=== PATIENT | female | born 1995 | race Two or more races ===

== ENCOUNTER 2018-10-28 13:08 | Emergency (ER) | payer BC, MEDICAID ==
[2018-10-28 15:33] VITALS: BP 110/66
--- NOTE | 2018-10-28 16:33 | ED ---
Influenza-Like Illness - HPI Summary HPI Summary: Patient is a 23-year-old female presenting to the ED with request for a Monospot test. She states she has been in close proximity with someone who is also being tested for mono and is concerned. She denies any symptoms. She denies any fatigue, headache, photophobia, body aches, joint pains. Denies history of mono. Denies any fevers, sweats, chills. She states she is feeling at her baseline. - History of Current Complaint Chief Complaint: EDGeneral Time Seen by Provider: 10/28/18 13:14 Hx Obtained From: Patient Severity: Mild - Risk Factors Influenza Risk Factors: Negative - Allergy/Home Medications Allergies/Adverse Reactions: Allergies Allergy/AdvReac Type Severity Reaction Status Date / Time No Known Allergies Allergy Verified 10/28/18 13:17 PMH/Surg Hx/FS Hx/Imm Hx Previously Healthy: Yes - Immunization History Hx Pertussis Vaccination: No Immunizations Up to Date: Yes Infectious Disease History: No Infectious Disease History: Denies: Traveled Outside the [place] in Last 30 Days - Social History Occupation: Unemployed Lives: Dormitory/Roommates Alcohol Use: Occasionally Hx Substance Use: No Substance Use Type: Reports: None Hx Tobacco Use: No Smoking Status (MU): Unknown if Ever Smoked Review of Systems Constitutional: Negative Negative: Fever, Chills, Fatigue, Skin Diaphoresis Negative: Palpitations, Chest Pain Negative: Shortness Of Breath, Cough Genitourinary: Negative Positive: no symptoms reported, see HPI Negative: Arthralgia, Myalgia Skin: Negative All Other Systems Reviewed And Are Negative: Yes Physical Exam Triage Information Reviewed: Yes Vital Signs On Initial Exam: Initial Vitals Temp Pulse Resp BP Pulse Ox 98.8 F 110 18 114/76 99 10/28/18 13:14 10/28/18 13:14 10/28/18 13:14 10/28/18 13:14 10/28/18 13:14 Vital Signs Reviewed: Yes Appearance: Positive: Well-Appearing, Well-Nourished Skin: Positive: Warm, Skin Color Reflects Adequate Perfusion Head/Face: Positive: Normal Head/Face Inspection Eyes: Positive: EOMI, MONALISA, Conjunctiva Clear Neck: Positive: Supple, No Lymphadenopathy Respiratory/Lung Sounds: Positive: Clear to Auscultation, Breath Sounds Present Cardiovascular: Positive: RRR, Pulses are Symmetrical in both Upper and Lower Extremities Musculoskeletal: Positive: Strength/ROM Intact Neurological: Positive: Speech Normal Psychiatric: Positive: Affect/Mood Appropriate Diagnostics - Vital Signs Vital Signs Temp Pulse Resp BP Pulse Ox 10/28/18 15:31 98 F 95 16 110/66 99 10/28/18 14:59 99.2 F 99 18 99/51 98 10/28/18 13:14 98.8 F 110 18 114/76 99 - Laboratory Lab Results: Lab Results 10/28/18 Range/Units 14:13 Monoscreen Negative (Negative) Lab Statement: Any lab studies that have been ordered have been reviewed, and results considered in the medical decision making process. Flu Symptom Course/Dx - Course Course Of Treatment: Patient is evaluated for possible mono. She states she was in close proximity to someone who had mono. She is exhibiting no symptoms. On physical examination, patient appears well, lungs CTA. RRR. Dx with request for mono test. - Diagnoses Provider Diagnoses: Patient requested test Discharge - Sign-Out/Discharge Documenting (check all that apply): Patient Departure Patient Received Moderate/Deep Sedation with Procedure: No - Discharge Plan Condition: Stable Disposition: HOME Referrals: No Primary Care Phys,NOPCP [Primary Care Provider] - Additional Instructions: Negative for MONO. - Billing Disposition and Condition Condition: STABLE Disposition: Home - Attestation Statements Provider Attestation: I was available for consult. This patient was seen by the [facility]. The patient was not presented to, seen by, or examined by me. -Nicolas
== END 2018-10-28 15:31 | disposition home or self-care (01) ==
LOC: ED 13:08
DX: Z04.89 Encounter for examination and observation for other specified reasons (principal)
CPT/HCPCS: 36415; 86308; 99282

== ENCOUNTER 2019-08-13 17:59 | Emergency (ER) | payer BC ==
--- OUTSIDE RECORDS SUMMARY | 2019-08-13 18:06 | XMS REPORT | Summary of Care ---
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 of reinforcement, support of family/friends and written materials. Advisedof health risks of smoking cessation and substance abuse and monetary loss. Disposition: Discharge to home with mom in stable condition. Communication/Instructions to the PCP: strongly encourage pt to continue with current medication regimen. Consider neuropsychological testing. Pending labs/ tests done in hospital and still need to be followed up after discharge: None Patient was seen and discussed with Dr Hill who is in agreement with the above plan. Signature: Shruti Metcalf Date: July 30, 2019 10:24 AMElectronically signed by Shaw Hill MD at 2019 2:12 PM EST Associated attestation - Shaw Hill MD - 07/30/2019 2:12 PM ESTShe was clear and coherent when she met with the team before discharge. She plans to live with her mother and will apply for disability as she thinks that competitive work market will be too stressful for her. She may pursue further education. She wants to get psychological testing to rule out ADD.documented in this encounter Discharge Instructions Delmy Crouch LCSW - 07/29/2019 3:07 PM Javier Luo CANCELING AND CUTTING CONTROL CLERK [facility] [address] [place] [address] Appointment on Friday08/02/2019 at 11:[address] Robel Ruiz [facility]ry [facility] - psychiatry [address] [place] [address] [phone] Appointment on 08/05/2019 at 1:00 pm documented in this encounter Progress Notes Christianne Polanco RN - 07/30/2019 5:23 PM ESTPatient was picked up by her mom at 1720. Patient reported she is looking forward to going home. Patient denies SI /HI/AVH. [place] - 07/30/2019 1:39 PM EST Social Work Screening Patient Name: Natalya Tam Date of : 1995 County [place] Residence: [place] Admitting Dx: suicide attempt Suicide attempt Admitting Provider: Larisa Quiles MD Referral Type: Inpatient Referral Source: 5W Admission Reason for Referral: Discharge Planning Date: July 30, 2019 Informant: Patient SW intern brand and the team met with pt to discuss discharge. Pt states she is feeling much better today and is feeling hopeful about the next few months. Pt states her plan when she goes home is to apply for SSD due to her mental illness effecting her ability to work and states she will continue taking her medications. Pt has appointments with her therapist Giovanna on 08/02/[address] Ruiz on 08/05/2019 at 1 pm. Pt will discharge home today to live with her mother in [place]. Sexual Assault: Denies Interventions Encouraged patient to inform psychiatrist or therapist about any concerns. Encouraged direct communication. Assessed for SW needs. Discharged pt. Signature: [place] Date: July 30, 2019 Associated attestation - Delmy Loya LCSW - 07/30/2019 3:42 PM YANY attest that this discharge note is complete and accurate.Annabel Henderson GN - 10/2019 11:19 AM ESTPatient discharged at approximately 1040. Discharge paperwork, including medications/prescriptions, safety plan, and outpatient appointment information have all been discussed with the patient. All belongings have been collected and patient verified all belongings have been accounted for. If patient had any medications in the pharmacy or belongings in the safe, they have been returned. No concerns voiced by patient at this time and states readiness for discharge. Patient is waiting for her mother to pick her up at 1700. Ludwin Vigil RN - 07/30/2019 4:01 AM ESTPt asleep through out the night. Respirations easy,even,unlabored. Position changes noted. No apparent distress.No PRN's given this shift.\\ No new concerns. Will continue to monitor for comfort and safety. Shaw Jeffrey MD - 07/29/2019 1:43 PM EST PSY Progress Note Subjective: CC: "I'm feeling a lot better today" Interval HX: Natalya was seen for inpatient follow-up and family meeting with her mother, Marry Tam. SW, PA, PAstudent and HOTEL OPERATION MANAGER student were also present. Per nursing staff, she has been visible and social and med/meal compliant, looking forward to discharge. Today she appears very happy to see her mother and is pleasant and cooperative throughout the encounter. She is much more direct with her answers and does not exhibit her previous tangentiality or circumstantiality. Denies SI/HI/AVH. We start by obtaining collateral information from her mother, who corroborates her story of the incident in 2017; however, she does not mention any incident that barred Natalya from campus as pt has reported in previous sessions. States that afterwards, Natalya never really seemed the same and existed in a sedated state or anxious state, would intermittently say "I'm going crazy" and want to go to the hospital, but would calm down and feel better later without going. She also reports that pt was taking Seroquel and very high doses of medical marijuana to help her function, which contradicts pt' s prior statements that she used very little marijuana every so often. During the 2 week period between quitting her job and suicide attempt, mom says that Natalya was not sleeping, cooking at 3 am, and stumbling around the house. She didnotice a behavioral change when pt stopped Seroquel and started taking her stockpiled Klonopin (d/c'd by Dr. Ruiz because it didn't help). States that Natalya looks the best she has today than in the past 2.5 yrs. Mom also reports a FH of bipolar disorder in pt's maternal grandfather. Pt's biological father's FH is unknown. Upon further questioning, Mom reveals that in addition to pt's periods of decreased sleep and agitation, she also had a period where she did not get out of her mother's bed for about 1 month. We discussed her current medications, which pt is tolerating well. Klonopin has been discontinued with no adverse effects. She attributes her improvement to the gabapentin because it helps with her pain, but we assured pt that the risperidone was more likely to be the zepeda, as her prominent psychosis has continued to resolve. Counseled pt on avoidance of psychotropic substances, including marijuana, stimulants, benzodiazepines, and alcohol, which can precipitate episodes of psychosis. Patient is agreeable to this and says she is OK stopping her Klonopin; however she does express some concern about her ADHD diagnosis. She did well in high school, but was diagnosed by her PCP 1 year ago with ADHD. Has never undergone formal testing, and states she needed accommodations for school. States the reason she left [facility] is because she was not getting accommodations for her ADHD, which contradicts her story in previous visits that she was banned from campus after the 2017 incident. We informed her that the most helpful course of action for receiving accommodations from school would be a formal diagnosis from a neuropsychiatrist and recommended neuropsychological testing. Mom also states that Adderall precipitated periods of agitation for Natalya. We also recommended mood charting and emphasized longitudinalfollow-up with her therapist and psychiatrist. She is looking forward to discharge and plans to livewith her mom and take some time readjusting, possibly do something with art. She would like to see her old therapist, Giovanna Luo, and continue seeing Dr. Ruiz (she has an appointment on 08/04). She is looking forward to discharge and feels ready to go home in 1 or 2 days. . Patient Active Problem List Diagnosis Overdose of antipsychotic Suicide attempt Allergies: .No Known Allergies . Current Facility-Administered Medications: acetaminophen (TYLENOL) tablet 650 mg, 650 mg, Oral, Q4H PRN, LORENA Sanders, 650 mg at 07/27/19 1857 Benzocaine-Menthol (CEPACOL) 15-3.6 MG lozenge 1 lozenge, 1 lozenge, Mouth/Throat, Q2H PRN, LORENA Sanders, 1 lozenge at 07/26/19 1239 gabapentin (NEURONTIN) capsule 200 mg, 200 mg, Oral, TID, LORENA Simmons guaifenesin (MUCINEX) 12 hr tablet 600 mg, 600 mg, Oral, BID, LORENA Paul, 600 mg at07/29/19 0825 hydrOXYzine (ATARAX) tablet 50 mg, 50 mg, Oral, Q6H PRN, LORENA Sanders, 50 mg at 07/28/19 1601 linezolid (ZYVOX) tablet 600 mg, 600 mg, Oral, 2 times per day, LORENA Barron, 600 mg at07/29/19 0825 mirtazapine (REMERON) tablet 15 mg, 15 mg, Oral, Nightly, Larisa Quiles MD, 15 mg at 07/28/19 2118 multivitamin tablet 1 tablet, 1 tablet, Oral, Daily, LORENA Sanders, 1 tablet at 07/29/19 0826 nicotine (NICODERM CQ) 14 MG/24HR 1 patch, 1 patch, Transdermal, Daily, LORENA Simmons, 1 patch at 07/29/19 0827 ondansetron (ZOFRAN-ODT) disintegrating tablet 4 mg, 4 mg, Oral, Q6H PRN , LORENA Sanders pantoprazole (PROTONIX) EC tablet 40 mg, 40 mg, Oral, Daily, LORENA Sanders, 40 mgat 07/29/19 0826 risperidone (RISPERDAL) tablet 2 mg, 2 mg, Oral, BID, LORENA Simmons, 2 mg at 07/29/19 0826 Review Of Systems: Medical Review Of Systems: .Review of Systems Constitutional: Negative for malaise/fatigue and weight loss. Respiratory: Negative for shortness of breath. Cardiovascular: Negative for chest pain. Gastrointestinal: Negative for abdominal pain. Psychiatric/Behavioral: Positive for depression, substance abuse and suicidal ideas. Negative for hallucinations. The patient is nervous/anxious. All other systems reviewed are negative Psychiatric Review Of Systems: sleep: yes, improved appetite changes: yes, improved weight changes: no energy/anergy: yes, improved interest/pleasure/anhedonia: yes, improved somatic symptoms: yes, improved libido: no anxiety/panic: yes, somewhat improved (pt states she is back to her baseline level of anxiety, whichis tolerable to her) guilty/hopeless: no S.I.B.s/risky behavior: no any drugs: no alcohol: no Objective: . Vitals: 07/28/19 0600 07/28/19 0821 07/28/19 1600 07/29/19 0824 BP: (!) 78/46 100/62 112/75 103/66 Pulse: (!) 59 64 72 79 Resp: 16 16 16 16 Temp: 36.4 C 36.6 C 37 C 36.9 C SpO2: 98% 98% 99% 99% Mental Status Exam: .General Appearance: Patient is a short, thin 24 y.o. female who appears the stated age. She has short, black hair. She has good hygiene. She is sitting in a chair.She is dressed in weather appropriate and casual clothing. Behavior: Attitude: Patient is cooperative. Psychomotor: Patient has normal gait Patient does not have psychomotor agitation or psychomotor retardation. Patient does not exhibit restlessness. Eye Contact: Eye contact is appropriate. Patient maintains good eye contact. Speech: Patient's speech is fluent and spontaneous. Speech quantity: normal. Rate is normal. Volume is normal. Tone is normal. Mood: Patient's mood is happy Affect: Affect is euthymic, stable and congruent with stated mood. Patient appears to have full range. Thought Process: Thought process is linear, coherent and goal directed. Patient does not have racingthoughts. Thought Content: Patient expresses somatic delusions. Patient does not express active suicidal ideation, passive suicidal ideation, active homicidal ideation and passive homicidal ideation. Perceptions: Patient is not internally preoccupied. Patient does not have auditory hallucinations orvisual hallucinations. Cognition: Patient is awake and alert and attentive. She appears to have average intelligence. Insight: Fair Judgement: Fair Gait: Normal Muscle Tone: no rigidity Labs: . Recent Labs Lab 07/24/19 0854 07/25/19 0842 07/26/19 1001 NA 138 137 136 K 4.1 3.5 4.0 CL 102 102 102 BICARBONATE 23 20* 18* CALCIUM 9.2 9.1 9.6 GLUCOSE 86 84 139 BUN 6 4* 2* CREATININE 0.55 0.57 0.65 BCR 12 7 4 GFRAA >90 >90 >90 GFRNONAA >90 >90 >90 . Recent Labs Lab 07/23/19 0621 HCT 37.0 HGB 12.2 MCH 30.0 MCHC 32.9 MCV 91.1 PLT 272 RDW 14.1 WBC 12.3* . Recent Labs Lab 07/25/19 0842 TSH 2.190 EK07/23/2019 9:23 AM - Interface, Received Via [employer]al Systems Narrative & Impression Ventricular Rate: 114 BPM Atrial Rate: 114 BPM P-R Interval: 140 ms QRS Duration: 84 ms Q-T Interval: 318 ms QTC Calculation(Bazett): 438 ms P [place]: 48 degrees R [place]: 60 degrees T [place]: -4 degrees : SINUS TACHYCARDIA : NONSPECIFIC T WAVE ABNORMALITY : QTC WITHIN NORMAL LIMITS : ABNORMAL ECG : WHEN COMPARED WITH ECG OF 22-JUL-2019 14:28, : NON SPECIFIC T WAVE ABNORMALITY IN INFERIOR LEADS : Confirmed by MD LOJA DANIEL ([id number]) on 07/23/2019 9:23:32 : AM Assessment and Plan: Patient's psychotic symptoms appear to have markedly improved. However, due to her FH of bipolar disorder and mom's report of apparent manic and depressive episodes, it is important to consider a diagnosis of bipolar I disorder. Given the patient's heavy polysubstance use, it is unclear if this psychotic episode was substance-induced or if it was a mixed manic and depressive bipolar episode (possiblytriggered by substance use). She appears to be stable and ready for discharge in the near future, but we established the importance of medication adherence and close longitudinal follow-up with her current outpatient providers. Primary Diagnosis: DSM-5: Psychosis vs Substance Induced Psychotic disorder R/O Bipolar I -continue Risperdal to 2 mg BID -increase Gabapentin to 200 mg TID for anxiety -continue to monitor for safety and efficacy -encourage pt to participate in group activities -patient to see psychiatrist Dr. Ruiz for follow-up on 08/04 -anticipate discharge in 1-2 days Duration of Face to Face Time (in minutes)::45 FloorTime (in minutes): 40 [x] Greater than 50% of patient time and floor time spent providing counseling and/or coordination of care Counseling provided with: [x] Patient [x] Family [] Caregiver [x] Diagnostic results/impressions and/or recommendation studies [x] Risks and Benefits of Treatment Options [x] Instruction for Management/Treatment and/or Follow-Up [] Risk Factor Reduction [x] Importance of Compliance with Treatment Options [x] Patient/Family/Caregiver Education [] Prognosis Coordination of Care provided with: [x] Nursing Staff [x] Treatment Team [x]Social Work [x] Physician(s) [x] Family [] Caregiver Justification for Continued Stay: [x] A. Continued Danger to Self and/or Others [] B. Continued behavior intolerable to patient or society [] C. High probability of A or B recurring if patient were discharged and imminent re-hospitalization likely [] D. Recovery depends on use of modality, patient unwilling or unable to cooperate [] E. Major change of clinical conditions required extended treatment [] F. Patient has general medical condition requiring hospital care & due to psychiatric aspects, patient cannot be managed as well on non-psych unit [] ALC Alternate Level of Care Jennifer Engel RN - 07/29/2019 11:57 AM ESTReport received from previous shift. At the beginning of the shift pt was sleeping in room. Spend time with pt in 1:1 session and talked about the importance of using coping skills or learning the new one. According to pt, "slept good " and has a "good Mood." Pt was looking forward her family meeting. Pt was visible in the milieu, socialized with selected peers and encouraged to participate in unit'sgroups. Pt denies any safety concerns. Pt's L arm looks better, no swelling, redness or pain. Pt ate breakfast and took scheduled meds. Pt was given the menu, educated and encouraged to make a choice for the next day. Pt ambulates independently, does ADL's also independently and is free of falls at this time. Pt is on 30 min checks and will continue to monitor for safety. Delmy Slaughter LCSW - 07/29/2019 11:23 AM EST Social Work Screening Patient Name: Natalya Tam Date of : 1995 County [place] Residence: [place] Admitting Dx: suicide attempt Suicide attempt Admitting Provider: Larisa Quiles MD Referral Type: Inpatient Referral Source: 5W Admission Reason for Referral: Family Meeting Date: July 29, 2019 Informant: Patient The treatment team met with patient and her mother for a family meeting. Patient's symptoms were discussed including her response to stimulants and CBD oil. Patient was informed that she should stay on the antipsychotic as that is what has giving her the stability that she has achieved in the hospital. Patient's mother stated she is the best she has been in years. Patient agreed to stop using mj and cbd oil as it has been contraindicated with her psychotic depression. Patient hopes to return toschool and to work slowly as she continues to get better. Patient wants to return to her therapist Giovanna Luo and her psychiatrist Robel Ruiz, both located in [facility]. Patient will be discharged on Friday07/30/2019. Sexual Assault: Denies Interventions Held a family meeting. Signature: Delmy Loya Date: July 29, 2019 Heber Siddiqui RN - 07/29/2019 2:13 AM ESTRN Sheet Metal Operator Report: Patient has appeared to be sleeping for the majority of the shift. Patient's breathing appeared easy and unlabored. Position changes noted throughout the night. No safety concerns. Will continue to monitor. Heber Siddiqui RN - 07/29/2019 2:09 AM ESTRN Shift Report: Report received from previous RN at 1900. Patient intermittently visible in the milieu this shift. Patient states her mood is "much better," affect congruent with mood. Patient lookingforward to her family meeting with her mother tomorrow. She states that she is looking forward to hopefully being discharged soon. Patient was compliant with scheduled medications this shift. Will continue to monitor and provide for safety. Report to be given to oncoming RN. Delmy Slaughter LCSW - 07/28/2019 4:18 PM EST Social Work Screening Patient Name: Natalya Tam Date of : 1995 County [place]idence: [place] Admitting Dx: suicide attempt Suicide attempt Admitting Provider: Larisa Quiles MD Referral Type: Inpatient Referral Source: 5W Admission Reason for Referral: Family Meeting Date: July 28, 2019 Informant: Patient SW spoke with patient's mother to invite her to a family meeting. She can be here on 07/29/2019 at 11am. Sexual Assault: Denies Interventions Set up a family meeting Signature: Delmy Loya Date: July 28, 2019 Shruti Trujilol PA - 07/28/2019 1:59 PM EST PSY Progress Note Subjective: CC: Im doing better today Interval HX: Pt seen today in follow up care together with Dr Hill, PA student and HOTEL OPERATION MANAGER student. She is more clear and coherent today, acknowledges that she is "feeling better" she attributes this to gabapentin, which may be helping with her anxiety, but it is more likely the increase in her Risperdal which started last night. She is tolerating both medications with no negative effects. She continues to not be able to describe what was happening to her psychologically when she has these "PTSD episodes" she just repeats "pain" to any questions asked. When she resigned - she text her pattern marking supervisor saying she "required termination" because she was unable to perform her duties and would not be eligible forre-hire. I asked what her pattern marking supervisor responded with and pt replied she was unsure as she immediatelyblocked her number. She denies current SI. Agreed to rescind letter requesting court hearing. . Patient Active Problem List Diagnosis Overdose of antipsychotic Suicide attempt Allergies: .No Known Allergies . Current Facility-Administered Medications: acetaminophen (TYLENOL) tablet 650 mg, 650 mg, Oral, Q4H PRN, LORENA Sanders, 650 mg at 07/27/19 1857 Benzocaine-Menthol (CEPACOL) 15-3.6 MG lozenge 1 lozenge, 1 lozenge, Mouth/Throat, Q2H PRN, LORENA Sanders, 1 lozenge at 07/26/19 1239 clonazePAM (KLONOPIN) tablet 0.5 mg, 0.5 mg, Oral, BID, LORENA Simmons, 0.5 mg at 07/28/19 0825 gabapentin (NEURONTIN) capsule 100 mg, 100 mg, Oral, TID, LORENA Simmons, 100 mg at 07/28/19 0825 guaifenesin (MUCINEX) 12 hr tablet 600 mg, 600 mg, Oral, BID, LORENA Paul, 600 mg at07/28/19 0825 hydrOXYzine (ATARAX) tablet 50 mg, 50 mg, Oral, Q6H PRN, LORENA Sanders, 50 mg at 07/26/19 0104 linezolid (ZYVOX) tablet 600 mg, 600 mg, Oral, 2 times per day, LORENA Barron, 600 mg at07/28/19 0825 mirtazapine (REMERON) tablet 15 mg, 15 mg, Oral, Nightly, Larisa Quiles MD, 15 mg at 07/27/19 213 multivitamin tablet 1 tablet, 1 tablet, Oral, Daily, LORENA Sanders, 1 tablet at 07/28/19 08 nicotine (NICODERM CQ) 14 MG/24HR 1 patch, 1 patch, Transdermal, Daily, LORENA Simmons, 1 patch at 07/28/19 0828 ondansetron (ZOFRAN-ODT) disintegrating tablet 4 mg, 4 mg, Oral, Q6H PRN , LORENA Sanders pantoprazole (PROTONIX) EC tablet 40 mg, 40 mg, Oral, Daily, LORENA Sanders, 40 mgat 07/28/19 08 risperidone (RISPERDAL) tablet 2 mg, 2 mg, Oral, BID, LORENA Simmons, 2 mg at 07/28/19 0825 Review Of Systems: Medical Review Of Systems: .Review of Systems Constitutional: Negative for malaise/fatigue and weight loss. Respiratory: Negative for shortness of breath. Cardiovascular: Negative for chest pain. Gastrointestinal: Negative for abdominal pain. Psychiatric/Behavioral: Positive for depression, substance abuse and suicidal ideas. Negative for hallucinations. The patient is nervous/anxious. All other systems reviewed are negative Psychiatric Review Of Systems: sleep: yes appetite changes: yes weight changes: no energy/anergy: yes interest/pleasure/anhedonia: yes somatic symptoms: no libido: no anxiety/panic: yes guilty/hopeless: yes S.I.B.s/risky behavior: no any drugs: no alcohol: no Objective: . Vitals: 07/27/19 2100 07/27/19 2103 07/28/19 0600 07/28/19 0821 BP: 90/65 91/56 (!) 78/46 100/62 Pulse: (!) 59 64 Resp: 16 16 16 Temp: 37 C 36.4 C 36.6 C SpO2: 98% 98% 98% Mental Status Exam: .General Appearance: Patient is a thin 24 y.o. female who appears the stated age. She has braided hair. She has fair hygiene. She is sitting in a chair.She is dressed in weather appropriate and casualclothing. Behavior: Attitude: Patient is evasive. Psychomotor: Patient has normal gait Patient does not have psychomotor agitation or psychomotor retardation. Patient does not exhibit restlessness. Eye Contact: Patient maintains good eye contact. Speech: Patient's speech is spontaneous. Speech quantity: normal. Rate is normal. Volume is normal. Mood: Patient's mood is OK Affect: Affect is apathetic and labile. Patient appears to have full range. Thought Process: Thought process is coherent and circumstantial. Thought Content: Patient expresses somatic delusions. Patient does not express active suicidal ideation, passive suicidal ideation, active homicidal ideation and passive homicidal ideation. Perceptions: Patient is not internally preoccupied. Patient does not have auditory hallucinations orvisual hallucinations. Cognition: Patient is awake and alert and attentive. She appears to have average intelligence. Insight: Poor Judgement: Poor Gait:Normal Muscle Tone:Normal Labs: . Recent Labs Lab 07/22/19 0402 07/24/19 0854 07/25/19 0842 07/26/19 1001 NA 141 < > 138 137 136 K 3.3* < > 4.1 3.5 4.0 CL 114* < > 102 102 102 BICARBONATE 18* < > 23 20* 18* CALCIUM 6.6* < > 9.2 9.1 9.6 GLUCOSE 96 < > 86 84 139 BUN 3* < > 6 4* 2* CREATININE 0.52 < > 0.55 0.57 0.65 BCR 6 < > 12 7 4 PROT 5.5* -- -- -- -- ALBUMIN 3.4* -- -- -- -- TBILI 0.3 -- -- -- -- ALKPHOS 33* -- -- -- -- AST 9 -- -- -- -- ALT <5 -- -- -- -- GFRAA >90 < > >90 >90 >90 GFRNONAA >90 < > >90 >90 >90 < > = values in this interval not displayed. . Recent Labs Lab 07/22/19 0402 07/23/19 0621 HCT 35.3* 37.0 HGB 11.6 12.2 MCH 30.4 30.0 MCHC 32.8 32.9 MCV 92.5 91.1 PLT 118* 272 RDW 14.1 14.1 WBC 14.6* 12.3* . Recent Labs Lab 07/25/19 0842 TSH 2.190 Assessment and Plan: Primary Diagnosis: DSM-5: Psychosis vs Substance Induced Psychotic disorder -continue Risperdal to 2mg BID -continue Klonopin today at 0.5mg BID, tomorrow to 0.5mg qd and then D/C -discontinue clonidine, pt not meeting parameters to receive -continue Gabapentin 100mg TID -I have called mom and left a message requesting further collateral, no response - will call again -SW to arrange family meeting in next 48 hours for d/c planning -encourage pt to attend groups -collateral information from mom would be helpful Duration of Face to Face Time (in minutes)::45 FloorTime (in minutes): 30 [x] Greater than 50% of patient time and floor time spent providing counseling and/or coordination of care Counseling provided with: [x] Patient [] Family [] Caregiver [] Diagnostic results/impressions and/or recommendation studies [x] Risks and Benefits of Treatment Options [x] Instruction for Management/Treatment and/or Follow-Up [] Risk Factor Reduction [x] Importance of Compliance with Treatment Options [x]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 adjusted and to move out of the house she is currently at. She wants to reorient to the outside world and not have to worry about her medications. Patient has been oriented to the group schedule and will be encouraged to attend groups. Patient has been provided a journal and a stress ball. Shaw Jeffrey MD - 07/25/2019 1:54 PM EST PSY Progress Note Subjective: CC: Admitted after a serious overdose with Seroquel Interval HX: She has apparently experienced some unusual mood and behavioral symptoms over the past 2 years which she views as PTSD. She was treated at ICU for an overdose and was intubated. She has been focused on getting Klonopin and medical marijuana but is opposed to antipsychotics and mood stabilizers that are indicated. She has shown some improvement since yesterday. She is asking for a head scarf to use and is not focused on medications. She is on a small dose of Risperdal. . Patient Active Problem List Diagnosis Overdose of antipsychotic Suicide attempt Allergies: .No Known Allergies . Current Facility-Administered Medications: acetaminophen (TYLENOL) tablet 650 mg, 650 mg, Oral, Q4H PRN, LORENA Sanders, 650 mg at 07/24/192031 amoxicillin-clavulanate (AUGMENTIN) 875-125 MG per tablet 1 tablet, 1 tablet, Oral, 2 times per day, LORENA Sanders, 1 tablet at 07/25/19 0847 Benzocaine-Menthol (CEPACOL) 15-3.6 MG lozenge 1 lozenge, 1 lozenge, Mouth/Throat, Q2H PRN, LORENA Sanders, 1 lozenge at 07/25/19 1212 clonazePAM (KLONOPIN) tablet 1 mg, 1 mg, Oral, 4x Daily, LORENA Sanders, 1 mg at 07/25/19 1217 folic acid (FOLVITE) tablet 1 mg, 1 mg, Oral, Daily, LORENA Sanders, 1 mg at 07/25/19 0847 guaifenesin (MUCINEX) 12 hr tablet 600 mg, 600 mg, Oral, BID, LORENA Paul, 600 mg at07/25/19 0847 hydrOXYzine (ATARAX) tablet 50 mg, 50 mg, Oral, Q6H PRN, LORENA Sanders, 50 mg at 07/25/19 0116 linezolid (ZYVOX) tablet 600 mg, 600 mg, Oral, 2 times per day, LORENA Barron, 600 mg at07/25/19 1212 multivitamin tablet 1 tablet, 1 tablet, Oral, Daily, LORENA Sanders, 1 tablet at 07/25/19 0847 nicotine (NICOTROL) inhaler 1 puff, 1 puff, Inhalation, PRN, Giorgio Darden , HOTEL OPERATION MANAGER, 1 puff at 07/24/192031 ondansetron (ZOFRAN-ODT) disintegrating tablet 4 mg, 4 mg, Oral, Q6H PRN , LORENA Sanders pantoprazole (PROTONIX) EC tablet 40 mg, 40 mg, Oral, Daily, LORENA Sanders, 40 mgat 07/25/19 0847 risperidone (RISPERDAL) tablet 1 mg, 1 mg, Oral, BID, LORENA Sanders, 1 mg at 07/25/19 0847 thiamine (B-1) tablet 100 mg, 100 mg, Oral, Daily, LORENA Sanders, 100 mg at 07/25/19 0847 Review Of Systems: Medical Review Of Systems: .ROS All other systems reviewed are negative Psychiatric Review Of Systems: sleep: yes appetite changes: yes weight changes: no energy/anergy: yes interest/pleasure/anhedonia: yes somatic symptoms: no libido: no anxiety/panic: yes guilty/hopeless: no S.I.B.s/risky behavior: no any drugs: no alcohol: no Objective: . Vitals: 07/23/19 1700 07/24/19 0900 07/24/19 1700 03/01/20 1010 BP: 110/71 98/65 98/64 108/74 Pulse: 92 (!) 106 93 Resp: (!) 20 18 16 16 Temp: 36.8 C 36.6 C 37 C 36.5 C SpO2: 98% 98% 99% 96% Mental Status Exam: .Mental Status Exam Gait:Normal Muscle Tone:Normal Labs: . Recent Labs Lab 07/22/19 0402 07/23/19 0621 07/24/19 0854 07/25/19 0842 NA 141 < > 141 138 137 K 3.3* < > 3.5 4.1 3.5 CL 114* < > 110* 102 102 BICARBONATE 18* < > 18* 23 20* CALCIUM 6.6* < > 8.1* 9.2 9.1 GLUCOSE 96 < > 94 86 84 BUN 3* < > 2* 6 4* CREATININE 0.52 < > 0.47* 0.55 0.57 BCR 6 < > 5 12 7 PROT 5.5* -- -- -- -- ALBUMIN 3.4* -- -- -- -- TBILI 0.3 -- -- -- -- ALKPHOS 33* -- -- -- -- AST 9 -- -- -- -- ALT <5 -- -- -- -- GFRAA >90 < > >90 >90 >90 GFRNONAA >90 < > >90 >90 >90 < > = values in this interval not displayed. . Recent Labs Lab 07/22/1940107/23/19 0621 HCT 35.3* 37.0 HGB 11.6 12.2 MCH 30.4 30.0 MCHC 32.8 32.9 MCV 92.5 91.1 PLT 118* 272 RDW 14.1 14.1 WBC 14.6* 12.3* . Recent Labs Lab 07/25/19 0842 TSH 2.190 Assessment and Plan: Primary Diagnosis: DSM-5: PTSD Depression Duration of Face to Face Time (in minutes)::10 Floor Time (in minutes): 10 [x] Greater than 50% of patient time and floor time spent providing counseling and/or coordination of care Counseling provided with: [x] Patient [] Family [] Caregiver [] Diagnostic results/impressions and/or recommendation studies [x] Risks and Benefits of Treatment Options [x] Instruction for Management/Treatment and/or Follow-Up [] Risk Factor Reduction [x] Importance of Compliance with Treatment Options [x] Patient/Family/Caregiver Education [] Prognosis Coordination of Care provided with: [x] Nursing Staff [x] Treatment Team []Social Work [] Physician(s) [] Family [] Caregiver Justification for Continued Stay: [] A. Continued Danger to Self and/or Others [x] B. Continued behavior intolerable to patient or society [x] C. High probability of A or B recurring if patient were discharged and imminent re-hospitalization likely [] D. Recovery depends on use of modality, patient unwilling or unable to cooperate [] E. Major change of clinical conditions required extended treatment [] F. Patient has general medical condition requiring hospital care & due to psychiatric aspects, patient cannot be managed as well on non-psych unit [] ALC Alternate Level of Care Joann Johnson PA - 07/25/2019 11:45 AM EST Asked by RN to look at erythema on left arm. Patient is being treated for cellulitis. Has been on doxy x24 hours with worsening erythema; line drawn around erythema today. We can change antibiotic to linazolid for MRSA coverage and monitor. If continues to worsen in next 24 hours we can get ID input. BC negative so far. LORENA Barron 07/25/2019 11:50 Jennifer Engel RN - 07/25/2019 9:55 AM ESTReport received from previous shift. At the beginning of the shift pt was sleeping in room. BW was done according to the order. Pt is on CIWA. The swelling on her L a/c area is less, the redness is less, the pain is much less. Pt was sometimes visible in the milieu, socialized with selected peers and encouraged to participatein unit's groups. Pt denies any safety concerns at this time. Pt's thoughts process is linear. Pt ate breakfast and took scheduled meds. Pt was given the menu, educated and encouraged to make a choice for the next day. Pt ambulates independently, does ADL's also independently and is free of falls at this time. Pt is on 15 min checks and will continue to monitor for safety. Addendum: 1045-Pt came to the nursing station and showed her L arm. T/w assessed and erin the skin b/c the redness and swelling expanded since am time when it was assessed. Provider made aware and Hospitalist was paged at 1052. At 1056 t/w did talk to the hopspitalist and let him know about the situation. Waiting for further instructions. Raeann Griffin RN - 07/25/2019 5:26 AM ESTBelongings Given to pt: Striped long sleeve sweater Gómez bodysuit Black long sleeve sweater Gómez long sleeve thermal Short sleeve maroon shirt [place] green leggings Black yoga pants Multicolored pants 2 pairs socks 2 pairs underwear Locked in bin: Green bag Yancey headwrap Purple headwrap 5: 35 AM Heber Siddiqui RN - 07/25/2019 2:59 AM ESTRN Sheet Metal Operator Report: Patient has appeared to be sleeping for the majority of the shift. Patient's breathing appeared easy and unlabored. Position changes noted throughout the night. No safety concerns. Will continue to monitor. 0630--Patient refused her blood work this morning stating, "I don't want to do it right now, please."Electronically signed by Heber Aguillon RN at 2019 6:36 AM Haley Jean Baptiste RN - 07/24/2019 9:49 AM EST Heber Siddiqui RN - 07/24/2019 1:48 AM ESTRN Sheet Metal Operator Report: Patient awake at the start of the shift, requesting Tylenol for arm pain. Patient also requested throat lozenges for a sore throat from being intubated. At this time, patient also received her HS medications willingly. Patient states that she will be unable to sleep because she usually takes 2mg of Klonopin instead of the 1mg that she is receiving here. She requested paper and a pencil and has been sitting in the hallway, quietly writing. Patient's breathing appeared easy and unlabored. Position changes noted throughout the night. No safety concerns. Will continue to monitor. Heber Siddiqui RN - 07/24/2019 1:43 AM ESTRN Shift Report: Report received from previous RN at 1900. Patient visible at the start of the shift, requesting a nicotrol inhaler in place of the nicotine patch. Shortly after, patient went back to her room and spent the rest of the shift sleeping in bed. HS medications were held because patient wassleeping and she had already received medication upon arrival to the unit this evening. Will continue to monitor and provide for safety. Report to be given to oncoming RN. Susan Gutierrez RN - 07/23/2019 9:30 PM ESTColored oil crayons Susan Gutierrez RN - 07/23/2019 8:18 PM ESTPatient arrived v/a stretcher with security and [facility] police surgeon. Patient was very upset that she was transferred here to a closed unit. She thought she was voluntary and realized this was a closed unit. She wanted to go now and if she had to stay then she wanted her mother to stay with her. Very manic. PA was called to help assist her and get her take medication to help her calm down. Patient did take the po medications ordered with encouragement. She called Mom on phone and was yelling at her several times. Mom did come up for visiting time at 1830. She did not want to stay long because shewanted her daughter to calm down and rest. She stated she has not been sleeping well. The manic phase has been coming on and off for the past two years. It started when she went to college and became stressed and not sleeping well. Gradually tonight with the medications given she did start to calm down. She did change her own room. She was shown her room was 506 and she found an empty bed in 515 and started sleeping there. Susan Gutierrez RN - 07/23/2019 8:00 PM ESTSkin intact. Old scab area to left knee from a fall outside the hospital stays. Susan Gutierrez RN - 07/23/2019 7:58 PM ESTIf wound was present on admission, this documentation was sent to attending provider for cosignature. No annotated images are attached to the encounter. If wound was present on admission, this documentation was sent to attending provider for cosignature. No annotated images are attached to the encounter. If wound was present on admission, this documentation was sent to attending provider for cosignature. No annotated images are attached to the encounter. If wound was present on admission, this documentation was sent to attending provider for cosignature. No annotated images are attached to the encounter. Trey Rich NP - 07/23/2019 5:31 PM ESTInformed by Medicine Service prior to [facility] that patient had been trending a low phosphorus level which was replenished and reported to be normal earlier today. Medicine Service asked thatAugmentin 875 mg BID be continued for four days for LLL aspiration pneumonia. They also recommended that BMP, Phosphorus, and Magnesium levels be drawn and followed for the next five days. Protonix wasto be continued for ten days (ulcer prophylaxis, as patient was briefly intubated and in intensive care following a 6 gram Seroquel overdose). Folate, Thiamine, and multivitamin were recommended to be continued due to the possibility of excessive alcohol use prior to admission. Discussed above with Elva CARRILLO. Susan Gutierrez RN - 07/23/2019 4:32 PM ESTNot cooperative with admission. Nurse was able to wand her and get her weight. Refused admission andvitals . documented in this encounter Plan of Treatment Name Type Priority Associated Diagnoses Order Schedule Consult to Assisted PET Rehab Routine Continuous for 30 Days Therapy-Rehab/Psych for 30 Days starting 07/23/2019 until 07/23/2019 Health Maintenance Due Date Last Done Comments Pneumococcal Vaccine: Pediatrics 2003 (0 to 5 Years) and At-Risk Patients (6 to 64 Years) (1 of 1 - PPSV23) HPV Vaccines (1 - Female 2-dose 2008 series) HIV Screening 2010 Chlamydia Screening 2013 Cervical Cancer Screening 3 years 2018 Varicella Vaccines (1 of 2 - 01/19/2019 2-dose childhood series) Influenza Vaccine 02/23/2019 DTaP,Tdap,and Td Vaccines (2 - Td) 03/04/2019 02/04/2019 Pneumococcal Vaccine: 65+ Years (1 2062 of 2 - PCV13) MMR Vaccines Completed 12/22/2018 HIB Vaccines Aged Out No longer eligible based on patient's age to complete this topic Hepatitis A Vaccines Aged Out No longer eligible based on patient's age to complete this topic Hepatitis B Vaccines Aged Out No longer eligible based on patient's age to complete this topic IPV Vaccines Aged Out No longer eligible based on patient's age to complete this topic documented as of this encounter Procedures Procedure Name Priority Date/Time Associated Comments Diagnosis PHOSPHORUS LEVEL Routine 07/28/2019 9:20 Results for this AM EST procedure are in the results section. MAGNESIUM LEVEL Routine 07/28/2019 9:20 Results for this AM EST procedure are in the results section. PHOSPHORUS LEVEL Routine 07/27/2019 9:20 Results for this AM EST procedure are in the results section. MAGNESIUM LEVEL Routine 07/27/2019 9:20 Results for this AM EST procedure are in the results section. PHOSPHORUS LEVEL Routine 07/26/2019 10:01 Results for this AM EST procedure are in the results section. MAGNESIUM LEVEL Routine 07/26/2019 10:01 Results for this AM EST procedure are in the results section. BASIC METABOLIC PANEL Routine 07/26/2019 10:01 Results for this AM EST procedure are in the results section. TSH Routine 07/25/2019 8:42 Results for this AM EST procedure are in the results section. PHOSPHORUS LEVEL Routine 07/25/2019 8:42 Results for this AM EST procedure are in the results section. MAGNESIUM LEVEL Routine 07/25/2019 8:42 Results for this AM EST procedure are in the results section. HEMOGLOBIN A1C Routine 07/25/2019 8:42 Results for this AM EST procedure are in the results section. LIPID PANEL Routine 07/25/2019 8:42 Results for this AM EST procedure are in the results section. BASIC METABOLIC PANEL Routine 07/25/2019 8:42 Results for this AM EST procedure are in the results section. HCG, URINE Routine 07/24/2019 7:10 Results for this QUALITATIVE PM EST procedure are in the results section. PHOSPHORUS LEVEL Routine 07/24/2019 8:54 Results for this AM EST procedure are in the results section. MAGNESIUM LEVEL Routine 07/24/2019 8:54 Results for this AM EST procedure are in the results section. BASIC METABOLIC PANEL Routine 07/24/2019 8:54 Results for this AM EST procedure are in the results section. documented in this encounter Results Phosphorus Level (07/28/2019 9:20 AM EST) Phosphorus 3.2 2.5 - 4.5 mg/dL [facility] at Specimen Plasma Performing Organization Address [facility] Centercode Phone Number [facility] AT [address] [id number] [phone] [facility] at [address] [address] Magnesium Level (07/28/2019 9:20 AM EST) Magnesium 1.7 1.6 - 2.6 mg/dL [facility] at Specimen Plasma Performing Organization Address City/State/Zipcode Phone Number [facility] AT [address] [address] [facility] at [address] [address] Phosphorus Level (07/27/2019 9:20 AM EST) Phosphorus 2.6 2.5 - 4.5 mg/dL [facility] at Specimen Plasma Performing Organization Address City/[facility]/Zipcode Phone Number [facility] [address] [address] [facility] at [address] [address] Magnesium Level (07/27/2019 9:20 AM EST) Magnesium 1.8 1.6 - 2.6 mg/dL [facility] at Specimen Plasma Performing Organization Address City/[facility] Centercome Phone Number [facility] AT [address] [address] [facility] at [address] [address] Phosphorus Level (07/26/2019 10:01 AM EST) Phosphorus 2.4 (L) 2.5 - 4.5 mg/dL [facility] at Specimen Plasma Performing Organization Address [facility] Centercome Phone Number [facility] AT [address] [address] [facility] at [address] [address] Magnesium Level (07/26/2019 10:01 AM EST) Magnesium 1.7 1.6 - 2.6 mg/dL [facility] at Specimen Plasma Performing Organization Address [facility] Centercome Phone Number [facility] AT [address] [address] [facility] at [address] [address] Basic Metabolic Panel (07/26/2019 10:01 AM EST) Bicarbonate 18 (L) 22 - 29 mmol/L [facility] at Chloride 102 98 - 107 mmol/L [facility] at Creatinine 0.65 0.50 - 0.90 [facility] mg/dL [facility] at Glucose 139 70 - 140 mg/dL [facility] at Potassium 4.0 3.4 - 5.1 mmol/L [facility] at Sodium 136 136 - 145 mmol/L [facility] at Blood Urea Nitrogen 2 (L) 6 - 20 mg/dL [facility] at Anion Gap 16 (H) 8 - 15 mmol/L [facility] at Osmolality, Andrew 280 275 - 300 [facility] mosm/kg [facility] BUN/Cre Ratio 4 [facility] at Calcium 9.6 8.6 - 10.0 mg/dL [facility] at GFR Non >90 >60 [facility] [place] 2009 CDK-EPI mL/min/1.73m2 [facility] at GFR >90 >60 [facility] 2009 CKD-EPI mL/min/1.73m2 [facility] Specimen Plasma Performing Organization Address City/[facility]/Zipcode Phone Number [facility] AT [address] [address] [phone] [facility] at [address] [address] Lipid panel (07/25/2019 8:42 AM EST) Cholesterol 142 <200 mg/dL [facility] at Triglyceride 85 <150 mg/dL [facility] at HDL Cholesterol 52 >50 mg/dL [facility] at LDL Cholesterol 74 <100 mg/dL [facility] at VLDL Cholesterol 17 16 - 42 mg/dl [facility] at Non HDL Cholesterol 90 <130 mg/dL [facility] at Specimen Plasma Performing Organization Address City/[facility]ercome Phone Number [facility] AT [address] [address] [facility] at [address] [address] Hemoglobin A1c (07/25/2019 8:42 AM EST) Hemoglobin A1C 4.9 4.0 - 6.0 % [facility] at Estimated Avg Glucose 94 <126 mg/dL [facility] at Specimen Whole Blood Performing Organization Address City/[facility]/Zipcode Phone Number [facility] AT [address] [address] [facility] at [address] [address] TSH (07/25/2019 8:42 AM EST) TSH 2.190 0.270 - 4.200 u[IU]/mL [facility] at Specimen Plasma Performing Organization Address City/[facility]/Zipcode Phone Number [address] [address] [phone] [facility] at [address] [address] Phosphorus Level (07/25/2019 8:42 AM EST) Phosphorus 3.3 2.5 - 4.5 mg/dL [facility] at Specimen Plasma Performing Organization Address City/[facility]ercome Phone Number [facility] AT [address] [address] [facility] at [address] [address] Magnesium Level (07/25/2019 8:42 AM EST) Magnesium 1.9 1.6 - 2.6 mg/dL [facility] at CG Specimen Plasma Performing Organization Address City/[facility]ercome Phone Number [facility] AT [address] [address] [facility] at [address] [address] Basic Metabolic Panel (07/25/2019 8:42 AM EST) Bicarbonate 20 (L) 22 - 29 mmol/L [facility] at CG Chloride 102 98 - 107 mmol/L [facility] at Creatinine 0.57 0.50 - 0.90 [facility] mg/dL [facility] at Glucose 84 70 - 140 mg/dL [facility] at Potassium 3.5 3.4 - 5.1 mmol/L [facility] at Sodium 137 136 - 145 mmol/L [facility] at Blood Urea Nitrogen 4 (L) 6 - 20 mg/dL [facility] at Anion Gap 15 8 - 15 mmol/L [facility] at Osmolality, Andrew 280 275 - 300 [facility] mosm/kg [facility] at CG BUN/Cre Ratio 7 [facility] at Calcium 9.1 8.6 - 10.0 mg/dL [facility] at GFR Non >90 >60 [facility] [place] 2009 CDK-EPI mL/min/1.73m2 [facility] at CG GFR >90 >60 [facility] 2009 CKD-EPI mL/min/1.73m2 [facility] at CG Specimen Plasma Performing Organization Address City/[facility] Centercode Phone Number [facility] AT [address] [address] [facility] at [address] [address] HCG, Urine Qualitative (07/24/2019 7:10 PM EST) HCG, Urine Indeterminate (A) Negative [facility] Qualitative Comment: [facility] at Testing performed on dilute samples CG with specific gravity less than 1.010 may not reflect levels of HCG present in blood stream. Urine HCG should be evaluated on a first morning urine sample within 48 hours or perform a serum/plasma BHCG. Specific [place], 1.005 1.003 - 1.030 [facility] Urine [facility] at Specimen Urine Performing Organization Address City/[facility]/Zipcode Phone Number [facility] AT [address] [address] [facility] at [address] [address] Phosphorus Level (07/24/2019 8:54 AM EST) Phosphorus 3.5 2.5 - 4.5 mg/dL [facility] at Specimen Plasma Performing Organization Address City/[facility]/Zipcode Phone Number [facility] AT [address] [address] [facility] at [address] [address] Magnesium Level (07/24/2019 8:54 AM EST) Magnesium 2.0 1.6 - 2.6 mg/dL [facility] at Specimen Plasma Performing Organization Address City/[facility] Centercode Phone Number [facility] AT [address] [address] [facility] at [address] [address] Basic Metabolic Panel (07/24/2019 8:54 AM EST) Bicarbonate 23 22 - 29 mmol/L [facility] at Chloride 102 98 - 107 mmol/L [facility] at Creatinine 0.55 0.50 - 0.90 [facility] mg/dL [facility] at Glucose 86 70 - 140 mg/dL [facility] at Potassium 4.1 3.4 - 5.1 mmol/L [facility] at Sodium 138 136 - 145 mmol/L [facility] at Blood Urea Nitrogen 6 6 - 20 mg/dL [facility] at Anion Gap 13 8 - 15 mmol/L [facility] at Osmolality, Andrew 283 275 - 300 [facility] mosm/kg Univ at BUN/Cre Ratio 12 [facility] at Calcium 9.2 8.6 - 10.0 mg/dL [facility] at GFR Non >90 >60 [facility] [place] 2009 CDK-EPI mL/min/1.73m2 Univ at GFR >90 >60 [facility] 2009 CKD-EPI mL/min/1.73m2 Univ at Specimen Plasma Performing Organization Address City/State/[facility]ercome Phone Number [facility] AT [address] [address] [phone] [facility] at [address] [place] [address] documented in this encounter Visit Diagnoses Diagnosis Suicide attempt Suicide and self-inflicted injury by unspecified means documented in this encounter Administered Medications Medication Order MAR Action Action Date Dose Rate Site acetaminophen (TYLENOL) tablet Given 07/27/2019 6:57 PM EST 650 mg 650 mg 650 mg, Oral, Every 4 hours PRN, Mild Pain (Pain Scale Score 1-3), Pain, Starting Fri07/23/19 at 1714, For 30 days, MDD 4, Given 07/27/2019 2:26 PM EST 650 mg Given 07/27/2019 9:14 AM EST 650 mg Benzocaine-Menthol (CEPACOL) 15-3.6 MG Given 07/26/2019 12:39 PM EST 1 lozenge lozenge 1 lozenge 1 lozenge, Mouth/Throat, Every 2 hours PRN, Sore Throat, Starting Fri07/23/19 at 2334, For 30 days Given 07/26/2019 9:43 AM EST 1 lozenge Given 07/26/2019 5:04 AM EST 1 lozenge gabapentin (NEURONTIN) capsule 200 mg Given 07/30/2019 4:15 PM EST 200 mg 200 mg, Oral, Three Times Daily Standard, First dose (after last modification) on Jeanette 07/29/19 at 1700, For 84 doses Given 07/30/2019 8:24 AM EST 200 mg Given 07/29/2019 8:39 PM EST 200 mg guaifenesin (MUCINEX) 12 hr tablet 600 mg Given 07/30/2019 8:24 AM EST 600 mg 600 mg, Oral, 2 Times Daily, First dose on 07/24/19 at 1200, For 30 days, Do not crush or chew, Given 07/29/2019 8:39 PM EST 600 mg Given 07/29/2019 8:25 AM EST 600 mg hydrOXYzine (ATARAX) tablet 50 mg Given 07/29/2019 8:40 PM EST 50 mg 50 mg, Oral, Every 6 hours PRN, Anxiety, Sleep, Starting Fri07/23/19 at 1717, For 30 days Given 07/28/2019 4:01 PM EST 50 mg Given 07/26/2019 1:04 AM EST 50 mg linezolid (ZYVOX) tablet 600 mg Given 07/30/2019 8:24 AM EST 600 mg 600 mg, Oral, Every 12 hours Standard (2 times per day), First dose on Fri07/25/19 at 1200, For 7 days, Discouraged Uses: VRE colonization of the stool, urine, respiratory tract, wounds or drains, Given 07/29/2019 8:39 PM EST 600 mg Given 07/29/2019 8:25 AM EST 600 mg mirtazapine (REMERON) tablet 15 mg Given 07/29/2019 8:39 PM EST 15 mg 15 mg, Oral, Nightly, First dose on Fri07/26/19 at 2200, For 10 days Given 07/28/2019 9:18 PM EST 15 mg Given 07/27/2019 9:32 PM EST 15 mg multivitamin tablet 1 tablet Given 07/30/2019 8:24 AM EST 1 tablet 1 tablet, Oral, Daily Standard, First dose (after last modification) on 07/24/19 at 0800, For 29 doses Given 07/29/2019 8:26 AM EST 1 tablet Given 07/28/2019 8:25 AM EST 1 tablet nicotine (NICODERM CQ) 14 Patch Applied 07/30/2019 8:24 AM EST 1 patch Left Arm MG/24HR 1 patch 1 patch, Transdermal, Administer over 24 Hours, Daily Standard, First dose on Fri07/27/19 at 1015, For 30 days Patch Applied 07/29/2019 8:27 AM EST 1 patch Right Arm Patch Applied 07/28/2019 8:28 AM EST 1 patch Left Arm pantoprazole (PROTONIX) EC tablet 40 mg Given 07/30/2019 8:24 AM EST 40 mg 40 mg, Oral, Daily Standard, First dose on Fri07/24/19 at 0900, For 30 days, Do not crush or chew, Given 07/29/2019 8:26 AM EST 40 mg Given 07/28/2019 8:25 AM EST 40 mg risperidone (RISPERDAL) tablet 2 mg Given 07/30/2019 8:24 AM EST 2 mg 2 mg, Oral, 2 Times Daily, First dose (after last modification) on Fri07/27/19 at 2100, For 51 doses Given 07/29/2019 8:39 PM EST 2 mg Given 07/29/2019 8:26 AM EST 2 mg Medication Order MAR Action Action Date Dose Rate Site amoxicillin-clavulanate Given 07/27/2019 9:29 PM EST 1 tablet (AUGMENTIN) 875-125 MG per tablet 1 tablet 1 tablet, Oral, Every 12 hours Standard (2 times per day), First dose (after last modification) on Fri07/24/19 at 0900, For 8 doses Given 07/27/2019 8:26 AM EST 1 tablet Given 07/26/2019 9:20 PM EST 1 tablet cetirizine (ZYRTEC) tablet 10 mg Given 07/24/2019 9:02 AM EST 10 mg 10 mg, Oral, Daily Standard, First dose (after last reorder) on Fri07/24/19 at 0900, For 1 dose clonazePAM (KLONOPIN) tablet 0.5 mg Given 07/29/2019 8:26 AM EST 0.5 mg 0.5 mg, Oral, 2 Times Daily, First dose (after last modification) on Fri07/27/19 at 2100, For 2 days, Do not split or crush, Given 07/28/2019 9:17 PM EST 0.5 mg Given 07/28/2019 8:25 AM EST 0.5 mg clonazePAM (KLONOPIN) tablet 1 mg Given 07/26/2019 4:14 AM EST 1 mg 1 mg, Oral, Four Times Daily Standard, First dose on Fri07/23/19 at 1730, For 4 days, Do not split or crush, Given 07/25/2019 10:14 PM EST 1 mg Given 07/25/2019 5:10 PM EST 1 mg clonazePAM (KLONOPIN) tablet 1 mg Given 07/26/2019 9:20 PM EST 1 mg 1 mg, Oral, Three Times Daily Standard, First dose (after last modification) on Fri07/26/19 at 1400, For 2 days, Do not split or crush, Given 07/26/2019 2:03 PM EST 1 mg clonazePAM (KLONOPIN) tablet 1 mg Given 07/27/2019 9:14 AM EST 1 mg 1 mg, Oral, 2 Times Daily, First dose (after last modification) on Fri07/27/19 at 0900, For 2 doses, Do not split or crush, cloNIDine (CATAPRES) tablet 0.1 mg Given 07/27/2019 8:26 AM EST 0.1 mg 0.1 mg, Oral, 2 Times Daily, First dose on Fri07/26/19 at 1200, For 30 days, Check vital signs before administering, Given 07/26/2019 9:20 PM EST 0.1 mg Given 07/26/2019 12:37 PM EST 0.1 mg doxycycline (MONODOX) capsule 100 mg Given 07/25/2019 8:47 AM EST 100 mg 100 mg, Oral, Every 12 hours Standard (2 times per day), First dose (after last modification) on Fri07/24/19 at 1145, For 7 days, Give with food and administer with at least 8 ounces (240 mL) of water. Have patient sit up for at least 30 minutes after taking to reduce the risk of esophageal irritation and ulceration, as able., Given 07/24/2019 8:32 PM EST 100 mg Given 07/24/2019 12:14 PM EST 100 mg folic acid (FOLVITE) tablet 1 mg Given 07/27/2019 8:27 AM EST 1 mg 1 mg, Oral, Daily Standard, First dose on Fri07/24/19 at 0900, For 30 days Given 07/26/2019 9:28 AM EST 1 mg Given 07/25/2019 8:47 AM EST 1 mg gabapentin (NEURONTIN) capsule 100 mg Given 07/29/2019 8:25 AM EST 100 mg 100 mg, Oral, Three Times Daily Standard, First dose on Fri07/27/19 at 1700, For 30 days Given 07/28/2019 9:18 PM EST 100 mg Given 07/28/2019 4:01 PM EST 100 mg gabapentin (NEURONTIN) capsule 100 mg Given 07/29/2019 12:28 PM EST 100 mg 100 mg, Oral, Once, [facility] 07/29/19 at 1200, For 1 dose nicotine (NICOTROL) inhaler 1 puff Given 07/26/2019 11:47 AM EST 1 puff 1 puff, Inhalation, PRN, Smoking cessation, Starting Fri07/23/19 at 1916, For 30 days, May puff cartridge for up to 20 minutes. Each cartridge delivers 4 mg Avoid use between hours of 2200 and 0600 due to stimulant effects Do not exceed 16 cartridges/day, Given 07/25/2019 6:13 PM EST 1 puff Given 07/24/2019 8:32 PM EST 1 puff risperidone (RISPERDAL) tablet 1 mg Given 07/27/2019 9:00 AM EST 1 mg 1 mg, Oral, 2 Times Daily, First dose on Fri07/23/19 at 1715, For 30 days Given 07/26/2019 9:20 PM EST 1 mg Given 07/26/2019 9:28 AM EST 1 mg thiamine (B-1) tablet 100 mg Given 07/27/2019 8:27 AM EST 100 mg 100 mg, Oral, Daily Standard, First dose on Fri07/24/19 at 0900, For 30 days Given 07/26/2019 9:28 AM EST 100 mg Given 07/25/2019 8:47 AM EST 100 mg documented in this encounter
--- OUTSIDE RECORDS SUMMARY | 2019-08-13 18:07 | XMS REPORT | Summary of Care ---
:1995 Author Organization [facility] Address [address] [place] [address] Care Team Providers Name Role Phone Unavailable Primary Care Provider Unavailable Reason for Visit Auth/Cert Status Reason Specialty Diagnoses / Procedures Referred By Contact Referred To Contact Diagnoses Danyel YORK. Overdose of antipsychotic Encounter Details Date Type Department Care Team Description 07/22/2019 - Hospital Encounter 06H MEDICAL ICU [facility] [address] [place] [address] [phone] 07/23/2019 [address] [facility] Maia Ashley MD [address] [place] [address] [phone] [place], [place] Ann Marie Mello MD [facility] [address] [place] [address] [phone] [id number] Allergies No Known Allergiesdocumented as of this encounter (statuses as of 07/23/2019) Medications Medication Sig Dispensed Refills Start Date End Date Status Amoxicillin-Pot Take 1 tablet 8 tablet 0 07/24/2019 07/28/2019 Suspended Clavulanate 875-125 by mouth every MG Oral Tablet 12 (twelve) (AUGMENTIN) hours for 4 days Additional information Folic Acid 1 MG Oral Take 1 tablet by 30 tablet 0 07/24/2019 08/23/2019 Suspended Tablet (FOLVITE) mouth daily Additional information Docusate Sodium 100 Take 1 capsule by 20 capsule 0 07/23/2019 08/02/2019 Suspended MG Oral Capsule mouth Two Times (COLACE) Daily for 10 days Additional information Acetaminophen 325 MG Take 2 tablets by 30 tablet 0 07/23/2019 08/02/2019 Suspended Oral Tablet mouth every 6 (six) hours as needed for up to 10 days Additional information Bisacodyl [address] 1 12 suppository 0 07/23/2019 08/02/2019 Suspended Rectal Suppository suppository (DULCOLAX) rectally every 3 (three) days as needed for Constipation for up to 10 days Additional information Tab-A-Simone/Beta Carotene Take 1 tablet by 30 tablet 0 07/24/20192019 Suspended Oral Tablet mouth daily Additional information Nicotine 14 MG/24HR Place 1 patch onto the 28 patch 0 07/23/20192019 Suspended Transdermal Patch 24 skin every 24 Hour (NICODERM CQ) (twenty-four) hours Additional information Thiamine HCl 100 MG Take 1 tablet by 30 tablet 0 07/24/2019 07/22/2020 Suspended Oral Tablet (B-1) mouth daily Additional information Senna 176 MG/5ML Oral Take 10 mLs by mouth 237 mL 0 07/23/2019 08/22/2019 Suspended Syrup (SENOKOT) nightly as needed Additional information Pantoprazole Sodium 40 Take 1 tablet by 10 tablet 0 07/24/2019 08/03/2019 Suspended MG Oral Tablet Delayed mouth daily for Release (PROTONIX) 10 days Additional information Potassium Phosphate Take 1 tablet by 20 tablet 0 07/23/2019 07/28/2019 Suspended Monobasic 500 MG Oral mouth Four times Tablet (K-PHOS daily with meals ORIGINAL) and nightly for 5 days Additional information Calcium Acetate 667 Take 1 capsule by 15 capsule 0 07/23/2019 07/28/2019 Suspended MG Oral Capsule mouth Three times (PHOSLO) daily with meals for 5 days Additional information documented as of this encounter (statuses as of 07/23/2019) Active Problems Problem Noted Date Overdose of antipsychotic 07/22/2019 documented as of this encounter (statuses as of 07/23/2019) Social History Tobacco Use Types Packs/Day Years [...] Sign Reading Time Taken Comments Blood Pressure 108/61 07/23/2019 1:55 PM EST Pulse 85 07/23/2019 2:00 PM EST Temperature 38 07/23/2019 2:00 PM EST C (100.4 F) Respiratory Rate 20 07/23/2019 2:00 PM EST Oxygen Saturation 99% 07/23/2019 8:00 AM EST Inhaled Oxygen Concentration - - Weight 53.3 kg (117 lb 8.1 oz) 07/22/2019 5:00 AM EST Height 145 cm (4' 9.09") 07/22/2019 5:00 AM EST Body Mass Index 25.35 07/22/2019 5:00 AM EST documented in this encounter Progress Notes Elizabeth Salvador RN - 07/23/2019 2:26 PM ESTAt 0715 report received from previous RN. Patient has 1:1 sitter at bedside for safety. Patient is in bilateral wrist restraints due to patient being physically violent over night. Writing RN goes intobedside. Patient starts telling delusional story about being restrained for no reason. Writing RN attempts to tell patient she was restrained because she was hitting and kicking RN's. Patient does not want to listen but contracts not to hurt self or others and agrees to stay in the hospital. trolley worker of patient completed. Writing RN removes bilateral wrist restraints from patient. Patient startsremoving them off the bed and placing the restraints back on her wrists and ankles and refuses to take them off. Room is checked for removal of anything that can be used by patient to harm self or others. At 0900 AM writing RN removed mccormack catheter per patient request and MD order. Patient tolerated well. Patient used commode around 1000 AM. Patient offered to get washed up but patient refused. Patient changed into suicide gown. Patient seems to escalate situation and keeps yelling about leaving. Patient's mother at bedside. Medicine team called to bedside as well as psych. Psych sees patient andpsych still sees patient as a danger to self and wants to involuntarily admit patient to [address] [place] [address]. Report given Daniel at [address] [place] [address]. Social work is setting up transport for 1530. Lexi Bailey, [facility] - 07/23/2019 12:55 PM ESTSW received a consult to complete assessment for suicide attempt. SW met with pt and her mom. Role of SW discussed with pt and mom. Pt was very frustrated and when SW attempted to talk to pt, pt was was unable to focus and needed to be re-directed several times. Pt was focused on getting IV out as it was painful. SW was unable to complete assessment. SW did inform pt and room that there is a bed in [facility] and that pt will be transferred there today. Pt is agreeable. SW assisted with transfer to . Saeed Wall - 07/23/2019 8:41 AM EST Medical/Clinical Toxicology Consultation Date of Consultation: Location of Service: MICU Requesting Provider Name: Dr. Correa Reason for Consultation: The Toxicology Service was consulted to evaluate this patient for History of Present Illness: Patient is a 24 y.o F with a unknown PMH who presents as a transfer from [facility] intubated. Patient is suspected to have ingested 60x 100mg seroquel around 4 pm on 07/21. Patient was originally found in her car with the engine turned off (Chg 2%) Patient became more lethargic after the incident and was subsequently intubated. Patient received charcoal 17 hours after ingestion. Patients other medications are unknown as well as her PMH. It is thought that she takes klonopin as well. ECG at OSH was showed a QTc of 364. New one was being drawn this morning. Ethanol was negative as well as ASA + APOP. Patient was extubated last night. Today Patient is doing much better. She is agitated and difficult to get to answer questions appropriately but states that she only took her Seroquel in an attempt to take her own life. Patient stated to us that she is still suicidal. Patient is currently asymptomatic. Review of Systems: Patient refused except stated above. Past Medical History: History reviewed. No pertinent past medical history. Social History: Social History Tobacco Use Smoking status: Current Every Day Smoker Types: Cigarettes Smokeless tobacco: Current User Substance Use Topics Alcohol use: Yes Medications: Current Facility-Administered Medications Medication Dose Route Frequency Provider Last Rate Last Dose acetaminophen (TYLENOL) tablet 650 mg 650 mg Oral Q6H PRN Cecy Branch MD azithromycin (ZITHROMAX) 500 mg in sodium chloride 0.9 % 250 mL (2 mg/mL ) IVPB 500 mg Intravenous Q24H Cherri Santiago DO bisacodyl (DULCOLAX) suppository 10 mg 10 mg Rectal Q72H PRN Nelson Diaz MD calcium acetate (PHOSLO) capsule 667 mg 667 mg Oral 3 x Daily with Meals Nelson Diaz MD 667 mg at 07/22/19 1647 cefTRIAXone (ROCEPHIN) infusion 1 g (premix) 1 g Intravenous Q24H Cherri Santiago DO cetirizine (ZYRTEC) tablet 10 mg 10 mg Oral Daily ANY Celaya docusate sodium (COLACE) capsule 100 mg 100 mg Oral BID Nelson Diaz MD 100 mg at 202 enoxaparin sodium (LOVENOX) injection 40 mg 40 mg Subcutaneous Daily Cecy Branch MD folic acid (FOLVITE) tablet 1 mg 1 mg Oral Daily Cherri Santiago DO midazolam (PF) (VERSED) injection 2 mg 2 mg Intravenous Once ANY Celaya multivitamin tablet 1 tablet 1 tablet Oral Daily Cherri Santiago DO nicotine (NICODERM CQ) 14 MG/24HR 1 patch 1 patch Transdermal Q24H ANY Celaya 1 patch at 07/22/19 2334 pantoprazole (PROTONIX) injection 40 mg 40 mg Intravenous Daily Lg Breen III, MD 40 mg at 07/22/19 0803 potassium chloride (K-DUR,KLOR-CON) dissolvable tablet 40 mEq 40 mEq Oral Once Cherri Santiago DO senna (SENOKOT) syrup 10 mL 10 mL Oral Nightly PRN Nelson Diaz MD sodium chloride 0.9 % 1,000 mL with MVI adult 10 mL, folic acid 1 mg, magnesium sulfate 16 mEq, thiamine (B-1) 100 mg infusion 100 mL/hr Intravenous Continuous Cherri Santiago DO thiamine (B-1) tablet 100 mg 100 mg Oral Daily Cherri Santiago DO Allergies: No Known Allergies Family History History reviewed. No pertinent family history. Physical Examination: [id number] RICHARD EOMI No abdominal tenderness Pulses 2+ No muscle clonous Laboratory Results: Results for orders placed or performed during the hospital encounter of 07/22/19 Basic Metabolic Panel Result Value Ref Range Bicarbonate 18 (L) 22 - 29 mmol/L Chloride 114 (H) 98 - 107 mmol/L Creatinine 0.52 0.50 - 0.90 mg/dL Glucose 96 70 - 140 mg/dL Potassium 3.3 (L) 3.4 - 5.1 mmol/L Sodium 141 136 - 145 mmol/L Blood Urea Nitrogen 3 (L) 6 - 20 mg/dL Anion Gap 9 8 - 15 mmol/L Osmolality, Andrew 288 275 - 300 mosm/kg BUN/Cre Ratio 6 Calcium 6.6 (L) 8.6 - 10.0 mg/dL GFR Non 2008 CDK-EPI >90 >60 mL/min/1.73m2 GFR 2008 CKD-EPI >90 >60 mL/min/1.73m2 Magnesium Level Result Value Ref Range Magnesium 1.4 (L) 1.6 - 2.6 mg/dL Phosphorus Level Result Value Ref Range Phosphorus 1.7 (L) 2.5 - 4.5 mg/dL Blood gas, arterial Result Value Ref Range pH 7.37 (L) 7.38 - 7.44 pCO2, Arterial 32 (L) 35 - 40 mm[Hg] pO2, Arterial 149 (H) 95 - 100 mmHg Oxygen Saturation 99 94 - 100 % Base Excess NEG 6 Total CO2 19 mmol/L FIO2 0.40 Hepatic Function Panel Result Value Ref Range Albumin 3.4 (L) 3.5 - 5.2 g/dL Bilirubin, Total 0.3 <1.2 mg/dL Bilirubin, Direct <0.2 <0.3 mg/dL Alkaline Phosphatase 33 (L) 35 - 104 U/L AST/SGO 9 <32 U/L ALT/SGP <5 <33 U/L Total Protein 5.5 (L) 6.4 - 8.3 g/dL CBC and Differential Result Value Ref Range White Blood Cell 14.6 (H) 4 - 10 10*3/uL Red Blood Cell 3.82 (L) 4.1 - 5.3 10*6/uL Hemoglobin 11.6 11.5 - 15.5 g/dL Hematocrit 35.3 (L) 36 - 45 % Mean Cell Volume 92.5 80 - 96 fL Mean Cell Hemoglobin 30.4 27 - 33 pg Mean Cell Hgb Conc 32.8 32.0 - 36.0 g/dL Red Cell Dist Width 14.1 11.5 - 14.5 % Platelet Count 118 (L) 150 - 400 10*3/uL Differential Type Manual Diff Neutrophil 89 % Lymphocyte 8 % Monocyte 3 % Abs Neutrophil 13.08 (H) 1.8 - 7.0 10*3/uL Abs Lymphocyte 1.10 (L) 1.2 - 4.0 10*3/uL Abs Monocyte 0.41 0 - 0.8 10*3/uL Macrocytosis 1+ Poikilocytosis 1+ Protime-INR Result Value Ref Range PT Patient 15.1 (H) 12.5 - 14.9 s Int'l Normalized Ratio 1.15 Partial Thromboplastin Time (PTT) Result Value Ref Range PTT Patient (PAT) 21.3 (L) 24.0 - 34.0 s Acetaminophen, Random Result Value Ref Range Acetaminophen, Random <5.0 (L) 10.0 - 30.0 ug/mL Salicylate level Result Value Ref Range Salicylate <1.0 (L) 3.0 - 30.0 mg/dL Basic Metabolic Panel Result Value Ref Range Bicarbonate 18 (L) 22 - 29 mmol/L Chloride 113 (H) 98 - 107 mmol/L Creatinine 0.67 0.50 - 0.90 mg/dL Glucose 109 70 - 140 mg/dL Potassium 3.8 3.4 - 5.1 mmol/L Sodium 141 136 - 145 mmol/L Blood Urea Nitrogen 2 (L) 6 - 20 mg/dL Anion Gap 10 8 - 15 mmol/L Osmolality, Andrew 289 275 - 300 mosm/kg BUN/Cre Ratio 3 Calcium 7.9 (L) 8.6 - 10.0 mg/dL GFR Non 2008 CDK-EPI >90 >60 mL/min/1.73m2 GFR 2008 CKD-EPI >90 >60 mL/min/1.73m2 Magnesium Level Result Value Ref Range Magnesium 2.6 1.6 - 2.6 mg/dL Phosphorus Level Result Value Ref Range Phosphorus 0.6 (LL) 2.5 - 4.5 mg/dL Phosphorus Level Result Value Ref Range Phosphorus 1.1 (L) 2.5 - 4.5 mg/dL Magnesium Level Result Value Ref Range Magnesium 2.2 1.6 - 2.6 mg/dL Basic Metabolic Panel Result Value Ref Range Bicarbonate 20 (L) 22 - 29 mmol/L Chloride 112 (H) 98 - 107 mmol/L Creatinine 0.64 0.50 - 0.90 mg/dL Glucose 111 70 - 140 mg/dL Potassium 3.5 3.4 - 5.1 mmol/L Sodium 143 136 - 145 mmol/L Blood Urea Nitrogen 2 (L) 6 - 20 mg/dL Anion Gap 11 8 - 15 mmol/L Osmolality, Andrew 292 275 - 300 mosm/kg BUN/Cre Ratio 3 Calcium 8.1 (L) 8.6 - 10.0 mg/dL GFR Non 2008 CDK-EPI >90 >60 mL/min/1.73m2 GFR 2008 CKD-EPI >90 >60 mL/min/1.73m2 Phosphorus Level Result Value Ref Range Phosphorus 2.9 2.5 - 4.5 mg/dL Magnesium Level Result Value Ref Range Magnesium 2.0 1.6 - 2.6 mg/dL Basic Metabolic Panel Result Value Ref Range Bicarbonate 20 (L) 22 - 29 mmol/L Chloride 112 (H) 98 - 107 mmol/L Creatinine 0.50 0.50 - 0.90 mg/dL Glucose 91 70 - 140 mg/dL Potassium 3.8 3.4 - 5.1 mmol/L Sodium 144 136 - 145 mmol/L Blood Urea Nitrogen 2 (L) 6 - 20 mg/dL Anion Gap 12 8 - 15 mmol/L Osmolality, Andrew 294 275 - 300 mosm/kg BUN/Cre Ratio 4 Calcium 8.4 (L) 8.6 - 10.0 mg/dL GFR Non 2008 CDK-EPI >90 >60 mL/min/1.73m2 GFR 2008 CKD-EPI >90 >60 mL/min/1.73m2 CBC and Differential Result Value Ref Range White Blood Cell 12.3 (H) 4 - 10 10*3/uL Red Blood Cell 4.06 (L) 4.1 - 5.3 10*6/uL Hemoglobin 12.2 11.5 - 15.5 g/dL Hematocrit 37.0 36 - 45 % Mean Cell Volume 91.1 80 - 96 fL Mean Cell Hemoglobin 30.0 27 - 33 pg Mean Cell Hgb Conc 32.9 32.0 - 36.0 g/dL Red Cell Dist Width 14.1 11.5 - 14.5 % Platelet Count 272 150 - 400 10*3/uL Differential Type Automated Diff Neutrophil 76 % Lymphocyte 13 % Monocyte 4 % Eosinophil 6 % Basophil 1 % Abs Neutrophil 9.43 (H) 1.8 - 7.0 10*3/uL Abs Lymphocyte 1.59 1.2 - 4.0 10*3/uL Abs Monocyte 0.46 0 - 0.8 10*3/uL Abs Eosinophil 0.76 (H) 0 - 0.5 10*3/uL Abs Basophil 0.06 0 - 0.2 10*3/uL Nucleated Red Blood Cells 0 0 - 0 /100 Phosphorus Level Result Value Ref Range Phosphorus 2.6 2.5 - 4.5 mg/dL Magnesium Level Result Value Ref Range Magnesium 1.9 1.6 - 2.6 mg/dL Basic Metabolic Panel Result Value Ref Range Bicarbonate 18 (L) 22 - 29 mmol/L Chloride 110 (H) 98 - 107 mmol/L Creatinine 0.47 (L) 0.50 - 0.90 mg/dL Glucose 94 70 - 140 mg/dL Potassium 3.5 3.4 - 5.1 mmol/L Sodium 141 136 - 145 mmol/L Blood Urea Nitrogen 2 (L) 6 - 20 mg/dL Anion Gap 13 8 - 15 mmol/L Osmolality, Andrew 288 275 - 300 mosm/kg BUN/Cre Ratio 5 Calcium 8.1 (L) 8.6 - 10.0 mg/dL GFR Non 2008 CDK-EPI >90 >60 mL/min/1.73m2 GFR 2008 CKD-EPI >90 >60 mL/min/1.73m2 POCT glucose, docked Result Value Ref Range POC Glucose 103 70 - 140 mg/dL Assessment: Natalya Tam is a 24 y.o. old female with acute seroquel overdose. Patient is currently doing much better. She is no longer sedated and is answering questions appropriately. Patients vitalsare stable and labs have been repleted. She shows no signs of QT prolongation. Patient is voiding appropriately. Recommendations: Patient is clear from a toxicological stand point. We recommend follow up and advice per primary team and psych. We will follow this morning's EKG. Please call us if any further concerns or changes in mental status. Thank you for this consult and for allowing Toxicology service to participate in the care of this patient. If there are any questions regarding recommendations, or if the patient's condition changes, please feel free to call the Toxicology Service or the Poison Center at . Report Completed by: Saeed Gaspar The case and findings were discussed and reviewed with Dr. Rodas + Dr. Correa --- End of Report --- Associated attestation - Kanchan Goncalves PharmD - 07/23/2019 2:13 PM ESTDiscussed with the student and agree with the students findings and plans as written, along with anysupplemental dictated and/or attending documentation in the patient record by myself. Itzel Ho MBBS - 07/23/2019 12:48 AM ESTPatient evaluated at bedside. She looks restless, angry, agitated and extremely emotionally volatile on my encounter. Demands to be taken off restraints. She says she might have "swore too much" and might have "been 2 -3 times louder" than the way she is talking right now but wants to be taken "off these restraints like an animal" She constantly swears during my interview and complaints about everyone taking care of her. When author tries to explain her that these measure are for her safety, she says "don't interrupt me and justlisten to me" Orders placed, will continue to monitor. David Whitaker RN - 07/23/2019 12:33 AM [id number] - Pt increasingly agitated, disagreeable with staff attempting to undo restraints and exit bed.Pt is confused, has poor impulse control, and aggressive. HR in 150s paged, orders placed. Kanchan Hutchison PharmD - 07/22/2019 11:33 AM EST Medical/Clinical Toxicology Consultation Date of Consultation: 07/22/19 Location of Service: MICU Requesting Provider Name: Dr. Correa Reason for Consultation: The Toxicology Service was consulted to evaluate this patient for History of Present Illness: Patient is a 24 y.o F with a unknown PMH who presents as a transfer from [facility] intubated. Patient is suspected to have ingested 60x 100mg seroquel around 4 pm on 07/21. Patient was originally found in her car with the engine turned off (Chg 2%) Patient became more lethargic after the incident and was subsequently intubated. Patient received charcoal 17 hours after ingestion. Patients other medications are unknown as well as her PMH. It is thought that she takes klonopin as well. ECG at OSH was showed a QTc of 364. New one was being drawn this morning. Ethanol was negative as well as ASA + APOP. Patient this morning is doing better and off sedation. Patient is still very lethargic and unable to answer any questions. Review of Systems: As seen above. Past Medical History: History reviewed. No pertinent past medical history. Social History: Social History Tobacco Use Smoking status: Current Every Day Smoker Types: Cigarettes Smokeless tobacco: Current User Substance Use Topics Alcohol use: Yes Medications: Current Facility-Administered Medications Medication Dose Route Frequency Provider Last Rate Last Dose acetaminophen (TYLENOL) tablet 650 mg 650 mg Oral Q6H PRN Lg Breen III, MD bisacodyl (DULCOLAX) suppository 10 mg 10 mg Rectal Q72H PRN Nelson Diaz MD calcium acetate (PHOSLO) capsule 667 mg 667 mg Oral 3 x Daily with Meals Nelson Diaz MD calcium gluconate in NaCl 0.9 % infusion 2 g/50 mL 2 g Intravenous Q1H PRN Lg Breen III, MD docusate sodium (COLACE) capsule 100 mg 100 mg Oral BID Nelson Diaz MD magnesium sulfate infusion 2 g/50 mL (premix) 16 mEq Intravenous Q1H PRN Lg Breen III, MD 50 mL/hr at 07/22/19 1100 midazolam (PF) (VERSED) injection 2 mg 2 mg Intravenous Q4H PRN ANY Ramsey 2 mgat 07/22/19 0452 NaCl infusion 0.9 % Intravenous Continuous Lg Breen III, MD Stopped at 07/22/19 1016 pantoprazole (PROTONIX) injection 40 mg 40 mg Intravenous Daily Lg Breen III, MD 40 mg at 07/22/19 0803 potassium chloride 20 mEq in 50 mL IVPB (premix) 20 mEq Intravenous Q1H PRN Lg Breen III, MD 25 mL/hr at 07/22/19 1100 Or potassium chloride 10 mEq in 100 mL IVPB (premix) 10 mEq Intravenous Q1H PRN Lg Breen III, MD potassium phosphate (monobasic) (K-PHOS ORIGINAL) tablet 500 mg 500 mg Oral 4 x Daily with Meals & Nightly Nelson Diaz MD potassium phosphate infusion 12 mmol/100 mL (central line) (premix) 12 mmol Intravenous Q2H PRN Lg Breen III, MD Or potassium phosphate infusion 6 mmol/100 mL (premix) 6 mmol Intravenous Q2H PRN Lg Breen III, MD propofol (DIPRIVAN) infusion 1,000 mg/100 mL 10-80 mcg/kg/min Intravenous Continuous ANY Ramsey Stopped at 07/22/19 0854 senna (SENOKOT) syrup 10 mL 10 mL Oral Nightly PRN Nelson Diaz MD sodium phosphate infusion 12 mmol/100 mL (central line) (premix) 12 mmol Intravenous Q2H PRNDeddie Breen III, MD Or sodium phosphate infusion 6 mmol/100 mL (premix) 6 mmol Intravenous Q2H PRN Lg Breen III, MD Allergies: No Known Allergies Family History History reviewed. No pertinent family history. Physical Examination: Intubated and sedated + difficult to arouse Pupils 3+ equal and reactive with disconjugate outward gaze CTA Bl RRR Normoactive bowel sounds Pulses 2+ Laboratory Results: Results for orders placed or performed during the hospital encounter of 07/22/19 Basic Metabolic Panel Result Value Ref Range Bicarbonate 18 (L) 22 - 29 mmol/L Chloride 114 (H) 98 - 107 mmol/L Creatinine 0.52 0.50 - 0.90 mg/dL Glucose 96 70 - 140 mg/dL Potassium 3.3 (L) 3.4 - 5.1 mmol/L Sodium 141 136 - 145 mmol/L Blood Urea Nitrogen 3 (L) 6 - 20 mg/dL Anion Gap 9 8 - 15 mmol/L Osmolality, Andrew 288 275 - 300 mosm/kg BUN/Cre Ratio 6 Calcium 6.6 (L) 8.6 - 10.0 mg/dL GFR Non 2008 CDK-EPI >90 >60 mL/min/1.73m2 GFR 2008 CKD-EPI >90 >60 mL/min/1.73m2 Magnesium Level Result Value Ref Range Magnesium 1.4 (L) 1.6 - 2.6 mg/dL Phosphorus Level Result Value Ref Range Phosphorus 1.7 (L) 2.5 - 4.5 mg/dL Blood gas, arterial Result Value Ref Range pH 7.37 (L) 7.38 - 7.44 pCO2, Arterial 32 (L) 35 - 40 mm[Hg] pO2, Arterial 149 (H) 95 - 100 mmHg Oxygen Saturation 99 94 - 100 % Base Excess NEG 6 Total CO2 19 mmol/L FIO2 0.40 Hepatic Function Panel Result Value Ref Range Albumin 3.4 (L) 3.5 - 5.2 g/dL Bilirubin, Total 0.3 <1.2 mg/dL Bilirubin, Direct <0.2 <0.3 mg/dL Alkaline Phosphatase 33 (L) 35 - 104 U/L AST/SGO 9 <32 U/L ALT/SGP <5 <33 U/L Total Protein 5.5 (L) 6.4 - 8.3 g/dL CBC and Differential Result Value Ref Range White Blood Cell 14.6 (H) 4 - 10 10*3/uL Red Blood Cell 3.82 (L) 4.1 - 5.3 10*6/uL Hemoglobin 11.6 11.5 - 15.5 g/dL Hematocrit 35.3 (L) 36 - 45 % Mean Cell Volume 92.5 80 - 96 fL Mean Cell Hemoglobin 30.4 27 - 33 pg Mean Cell Hgb Conc 32.8 32.0 - 36.0 g/dL Red Cell Dist Width 14.1 11.5 - 14.5 % Platelet Count 118 (L) 150 - 400 10*3/uL Differential Type Manual Diff Neutrophil 89 % Lymphocyte 8 % Monocyte 3 % Abs Neutrophil 13.08 (H) 1.8 - 7.0 10*3/uL Abs Lymphocyte 1.10 (L) 1.2 - 4.0 10*3/uL Abs Monocyte 0.41 0 - 0.8 10*3/uL Macrocytosis 1+ Poikilocytosis 1+ Protime-INR Result Value Ref Range PT Patient 15.1 (H) 12.5 - 14.9 s Int'l Normalized Ratio 1.15 Partial Thromboplastin Time (PTT) Result Value Ref Range PTT Patient (PAT) 21.3 (L) 24.0 - 34.0 s Acetaminophen, Random Result Value Ref Range Acetaminophen, Random <5.0 (L) 10.0 - 30.0 ug/mL Salicylate level Result Value Ref Range Salicylate <1.0 (L) 3.0 - 30.0 mg/dL POCT glucose, docked Result Value Ref Range POC Glucose 103 70 - 140 mg/dL Assessment: Natalya Tam is a 24 y.o. old female with acute seroquel overdose. Patient is currently still difficult to arouse despite being off sedation unless painful stimulus is applied. EKG is normal still. Lack of a patient history makes it difficult to tell if their are any other drugs on board. Recommendations: Recommend following up patient EKG. Recommend administering thiamine and starting CWA protocol due to possible history of chronic alcohol abuse. Recommend starting thiamine. Recommend extubation per primary team when able to protect airway. Recommend obtaining med list from PCP as family provides eloina unreliable history. Follow up with Tox team if changes in mental status. Thank you for this consult and for allowing Toxicology service to participate in the care of this patient. If there are any questions regarding recommendations, or if the patient's condition changes, please feel free to call the Toxicology Service or the Poison Center at . Report Completed by: Saeed Gaspar The case and findings were discussed and reviewed with Dr. Correa I saw and evaluated the patient. Discussed with the student and agree with the students findings and plans as written, along with any supplemental dictated and /or attending documentation in the patient record by myself. --- End of Report --- Monica Thacker RN - 07/22/2019 4:45 AM ESTIf wound was present on admission, this documentation was sent to attending provider for cosignature. documented in this encounter Plan of Treatment Name Type Priority Associated Diagnoses Date/Time Quetiapine Level Lab Routine 07/22/2019 4:02 AM EST Blood culture ; Microbiology Routine 07/22/2019 12:17 PM Peripheral EST EKG 12 Lead ECG Routine 07/22/2019 2:28 PM EST EKG 12 Lead ECG Routine 07/22/2019 4:00 PM EST Name Type Priority Associated Order Schedule Diagnoses CBC and Differential Lab Routine Daily for 30 Days starting 07/22/2019 until 08/19/2019, 2 completed Quetiapine Level Lab Routine Once for 1 Occurrences starting 07/22/2019 until 07/22/2019 Extubation Respiratory Care Routine Once for 1 Occurrences starting 07/22/2019 until 07/22/2019 EKG 12 Lead ECG Routine Once for 1 Occurrences starting 07/22/2019 until 07/22/2019 Sputum Culture; Microbiology Routine Once for 1 Sputum Occurrences starting 07/23/2019 until 07/23/2019 Phosphorus Level Lab Timed BID for 30 Days starting 07/23/2019 until 08/22/2019 Magnesium Level Lab Timed BID for 30 Days starting 07/23/2019 until 08/22/2019 Basic Metabolic Panel Lab Timed BID for 3 Days starting 07/23/2019 until 07/26/2019 Health Maintenance Due Date Last Done Comments [...] Procedure Name Priority Date/Time Associated Comments Diagnosis STREP URINE ANTIGEN Routine 07/23/2019 9:05 Results for this AM EST procedure are in the results section. RESPIRATORY PANEL Routine 07/23/2019 9:05 Results for this AM EST procedure are in the results section. LEGIONELLA ANTIGEN, Routine 07/23/2019 9:05 Results for this URINE AM EST procedure are in the results section. EKG 12-LEAD - CMAXX 07/23/2019 8:43 REPORT AM EST EKG 12-LEAD - CMAXX 07/23/2019 8:43 REPORT AM EST EKG 12-LEAD Routine 07/23/2019 8:43 Results for this AM EST procedure are in the results section. CBC AND DIFFERENTIAL Routine 07/23/2019 6:21 Results for this AM EST procedure are in the results section. PHOSPHORUS LEVEL Timed 07/23/2019 6:21 Results for this AM EST procedure are in the results section. MAGNESIUM LEVEL Timed 07/23/2019 6:21 Results for this AM EST procedure are in the results section. BASIC METABOLIC PANEL Timed 07/23/2019 6:21 Results for this AM EST procedure are in the results section. PHOSPHORUS LEVEL Timed 07/22/2019 11:41 Results for this PM EST procedure are in the results section. MAGNESIUM LEVEL Timed 07/22/2019 11:41 Results for this PM EST procedure are in the results section. BASIC METABOLIC PANEL Timed 07/22/2019 11:41 Results for this PM EST procedure are in the results section. PHOSPHORUS LEVEL STAT 07/22/2019 4:38 Results for this PM EST procedure are in the results section. MAGNESIUM LEVEL Timed 07/22/2019 4:38 Results for this PM EST procedure are in the results section. BASIC METABOLIC PANEL Timed 07/22/2019 4:38 Results for this PM EST procedure are in the results section. EKG 12-LEAD - CMAXX 07/22/2019 2:28 REPORT PM EST EKG 12-LEAD - CMAXX 07/22/2019 2:28 REPORT PM EST EKG 12-LEAD Routine 07/22/2019 2:28 Results for this PM EST procedure are in the results section. PHOSPHORUS LEVEL Timed 07/22/2019 1:50 Results for this PM EST procedure are in the results section. MAGNESIUM LEVEL Timed 07/22/2019 1:50 Results for this PM EST procedure are in the results section. BASIC METABOLIC PANEL Timed 07/22/2019 1:50 Results for this PM EST procedure are in the results section. EKG 12-LEAD - CMAXX 07/22/2019 9:42 REPORT AM EST EKG 12-LEAD - CMAXX 07/22/2019 9:42 REPORT AM EST EKG 12-LEAD Routine 07/22/2019 9:42 Results for this AM EST procedure are in the results section. XR CHEST FRONTAL ONLY Routine 07/22/2019 4:42 [place] this [address] AM EST procedure are in the results section. PARTIAL THROMBOPLASTIN STAT 07/22/2019 4:02 Results for this TIME (PTT) AM EST procedure are in the results section. ACETAMINOPHEN, RANDOM Routine 07/22/2019 4:02 Results for this AM EST procedure are in the results section. PROTIME INR STAT 07/22/2019 4:02 Results for this AM EST procedure are in the results section. CBC AND DIFFERENTIAL Routine 07/22/2019 4:02 Results for this AM EST procedure are in the results section. PHOSPHORUS LEVEL Timed 07/22/2019 4:02 Results for this AM EST procedure are in the results section. MAGNESIUM LEVEL Timed 07/22/2019 4:02 Results for this AM EST procedure are in the results section. SALICYLATE LEVEL Routine 07/22/2019 4:02 Results for this AM EST procedure are in the results section. HEPATIC FUNCTION PANEL Routine 07/22/2019 4:02 Results for this A AM EST procedure are in the results section. BASIC METABOLIC PANEL Timed 07/22/2019 4:02 Results for this AM EST procedure are in the results section. EKG 12-LEAD - CMAXX 07/22/2019 3:55 REPORT AM EST EKG 12-LEAD - CMAXX 07/22/2019 3:55 REPORT AM EST EKG 12-LEAD Routine 07/22/2019 3:55 Results for this AM EST procedure are in the results section. BLOOD GAS, ARTERIAL Routine 07/22/2019 3:50 Results for this AM EST procedure are in the results section. POCT GLUCOSE, DOCKED Routine 07/22/2019 3:05 Results for this AM EST procedure are in the results section. documented in this encounter Results Legionella antigen, urine (07/23/2019 9:05 AM EST) Special Request None [facility] Culture/Results Urine NEGATIVE for L. [facility] pneumophila serogroup 1 Med Univ [facility] antigen by Pathology immunochromatographic assay. This test does not detect infections due to other L. pneumophila serogroups or to other Legionella species. Specimen Urine Performing Organization Address [facility] Phone Number [facility] [address] [place] [address] [facility] [address] [place] [address] Pathology Strep Urine Antigen (07/23/2019 9:05 AM EST) Special Request None [facility] Culture/Results Negative for Streptococcus [facility] pneumoniae antigen using an [facility] immumochromatographic Pathology assay. Specimen Urine Performing Organization Address [facility] Phone Number [facility] [address] [place] [address] [facility] [address] [place] [address] Pathology Respiratory Panel (07/23/2019 9:05 AM EST) Special Request None [facility] Culture/Results Polymerase chain reaction is NEGATIVE for Influenza A H1, H3 and 2009 H1 viruses, Influenza B virus, Respiratory syncytial virus, Human metapneumovirus, Parainfluenza virus 1, 2, 3 and 4, Adenovirus, Rh [facility] inovirus/Enterovirus, Coronavirus HKU1, NL63, OC43, Univ Clin and 229E, Bordetella pertussis, Mycoplasma pneumoniae and Chlamydia pneumoniae. Pathology This assay does not detect novel Coronavirus (SARS-CoV, SARS-CoV-2, MERS-CoV) . Specimen Nasopharyngeal Swab Performing Organization Address [facility] Phone Number [facility] [address] [place] [address] [facility] [address] [place] [address] Pathology EKG 12-LEAD - CMAXX REPORT (07/23/2019 8:43 AM EST) Narrative Performed At EKG 12-LEAD - CMAXX REPORT (07/23/2019 8:43 AM EST) Narrative Performed At EKG 12 Lead (07/23/2019 8:43 AM EST) Specimen Narrative Performed At Ventricular Rate: [facility] EKG 114 BPM Atrial Rate: 114 BPM P-R Interval: 140 ms QRS Duration: 84 ms Q-T Interval: 318 ms QTC Calculation(Bazett): 438 ms P [place]: 48 degrees R [place]: 60 degrees T [place]: -4 degrees : SINUS TACHYCARDIA : NONSPECIFIC T WAVE ABNORMALITY : QTC WITHIN NORMAL LIMITS : ABNORMAL ECG : WHEN COMPARED WITH ECG OF 22-JUL-2019 14:28, : NON SPECIFIC T WAVE ABNORMALITY IN INFERIOR LEADS : Confirmed by MD LOJA DANIEL ([id number]) on 07/23/2019 9:23:32 : AM Procedure Note Interface, Received Via [employer] - 07/23/2019 9:23 AM EST Ventricular Rate: 114 BPM Atrial Rate: 114 BPM P-R Interval: 140 ms QRS Duration: 84 ms Q-T Interval: 318 ms QTC Calculation(Bazett): 438 ms P [place]: 48 degrees R [place]: 60 degrees T [place]: -4 degrees : SINUS TACHYCARDIA : NONSPECIFIC T WAVE ABNORMALITY : QTC WITHIN NORMAL LIMITS : ABNORMAL ECG : WHEN COMPARED WITH ECG OF 22-JUL-2019 14:28, : NON SPECIFIC T WAVE ABNORMALITY IN INFERIOR LEADS : Confirmed by MD LOJA DANIEL ([id number]) on 07/23/2019 9:23:32 : AM Performing Organization Address City/State/Zipcode Phone Number [facility] EKG Basic Metabolic Panel (07/23/2019 6:21 AM EST) Bicarbonate 18 (L) 22 - 29 mmol/L [facility] Chloride 110 (H) 98 - 107 mmol/L [facility] Creatinine 0.47 (L) 0.50 - 0.90 [facility] mg/dL CLINICAL PATHOLOGY Glucose 94 70 - 140 mg/dL [facility] Potassium 3.5 3.4 - 5.1 [facility] mmol/L CL[facility]ICAL PATHOLOGY Sodium 141 136 - 145 [facility] mmol/L CL[facility]ICAL PATHOLOGY Blood Urea Nitrogen 2 (L) 6 - 20 mg/dL [facility] Anion Gap 13 8 - 15 mmol/L [facility] CLINICAL PATHOLOGY Osmolality, Andrew 288 275 - 300 [facility] mosm/kg CLINICAL PATHOLOGY BUN/Cre Ratio 5 [facility] Calcium 8.1 (L) 8.6 - 10.0 [facility] mg/dL CLINICAL PATHOLOGY GFR Non >90 >60 [facility] [place] 2009 CDK-EPI mL/min/1.73m2 CLINICAL PATHOLOGY GFR >90 >60 [facility] 2009 CKD-EPI mL/min/1.73m2 CLINICAL PATHOLOGY Specimen Plasma Performing Organization Address City/[facility] Phone Number [facility] CLINICAL PATHOLOGY [address] [place] [address] [phone] Magnesium Level (07/23/2019 6:21 AM EST) Magnesium 1.9 1.6 - 2.6 mg/dL [facility] CLINICAL PATHOLOGY Specimen Plasma Performing Organization Address City/[facility] Phone Number [facility] CLINICAL PATHOLOGY [address] [place] [address] [phone] Phosphorus Level (07/23/2019 6:21 AM EST) Phosphorus 2.6 2.5 - 4.5 mg/dL [facility] CLINICAL PATHOLOGY Specimen Plasma Performing Organization Address [facility] Phone Number [facility] [address] [place] [address] CBC and Differential (07/23/2019 6:21 AM EST) White Blood Cell 12.3 (H) 4 - 10 [facility] 10*3/uL [facility] Pathology Red Blood Cell 4.06 (L) 4.1 - 5.3 [facility] 10*6/uL Univ [facility] Pathology Hemoglobin 12.2 11.5 - 15.5 [facility] g/dL Univ [facility] Pathology Hematocrit 37.0 36 - 45 % [facility] Pathology Mean Cell Volume 91.1 80 - 96 fL [facility] Pathology Mean Cell Hemoglobin 30.0 27 - 33 pg [facility] Pathology Mean Cell Hgb Conc 32.9 32.0 - 36.0 [facility] g/dL [facility] Pathology Red Cell Dist Width 14.1 11.5 - 14.5 % [facility] Pathology Platelet Count 272 150 - 400 [facility] 10*3/uL Univ Clin Pathology Differential Type Automated Diff [facility] Pathology Neutrophil 76 % [facility] Pathology Lymphocyte 13 % [facility] Pathology Monocyte 4 % [facility] Pathology Eosinophil 6 % [facility] Pathology Basophil 1 % [facility] Pathology Abs Neutrophil 9.43 (H) 1.8 - 7.0 [facility] 10*3/uL Univ [facility] Pathology Abs Lymphocyte 1.59 1.2 - 4.0 [facility] 10*3/uL [facility] Pathology Abs Monocyte 0.46 0 - 0.8 [facility] 10*3/uL Univ [facility] Pathology Abs Eosinophil 0.76 (H) 0 - 0.5 [facility] 10*3/uL Univ [facility] Pathology Abs Basophil 0.06 0 - 0.2 [facility] Med 10*3/uL [facility] Pathology Nucleated Red Blood 0 0 - 0 [facility] Cells /100{WBCs} [facility] Pathology Specimen EDTA Whole Blood Performing Organization Address [facility] Phone Number [facility] [address] [place] [address] [facility] [address] [place] [address] Pathology Basic Metabolic Panel (07/22/2019 11:41 PM EST) Bicarbonate 20 (L) 22 - 29 mmol/L [facility] Chloride 112 (H) 98 - 107 mmol/L [facility] Creatinine 0.50 0.50 - 0.90 [facility] mg/dL CLINICAL PATHOLOGY Glucose 91 70 - 140 mg/dL [facility] Potassium 3.8 3.4 - 5.1 [facility] mmol/L CLINICAL PATHOLOGY Sodium 144 136 - 145 [facility] mmol/L CLINICAL PATHOLOGY Blood Urea Nitrogen 2 (L) 6 - 20 mg/dL [facility] Anion Gap 12 8 - 15 mmol/L [facility] CLINICAL PATHOLOGY Osmolality, Andrew 294 275 - 300 [facility] mosm/kg CLINICAL PATHOLOGY BUN/Cre Ratio 4 [facility] Calcium 8.4 (L) 8.6 - 10.0 [facility] mg/dL CLINICAL PATHOLOGY GFR Non >90 >60 [facility] [place] 2008 CDK-EPI mL/min/1.73m2 CLINICAL PATHOLOGY GFR >90 >60 [facility] 2009 CKD-EPI mL/min/1.73m2 CLINICAL PATHOLOGY Specimen Plasma Performing Organization Address [facility] Phone Number [facility] [address] [place] [address] Magnesium Level (07/22/2019 11:41 PM EST) Magnesium 2.0 1.6 - 2.6 mg/dL [facility] CLINICAL PATHOLOGY Specimen Plasma Performing Organization Address [facility] Phone Number [facility] CLINICAL PATHOLOGY [address] [place] [address] [phone] Phosphorus Level (07/22/2019 11:41 PM EST) Phosphorus 2.9 2.5 - 4.5 mg/dL [facility] CLINICAL PATHOLOGY Specimen Plasma Performing Organization Address [facility] Phone Number [facility] CLINICAL PATHOLOGY [address] [place] [address] [phone] Basic Metabolic Panel (07/22/2019 4:38 PM EST) Bicarbonate 20 (L) 22 - 29 mmol/L [facility] CLINICAL PATHOLOGY Chloride 112 (H) 98 - 107 mmol/L [facility] Creatinine 0.64 0.50 - 0.90 [facility] mg/dL CLINICAL PATHOLOGY Glucose 111 70 - 140 mg/dL [facility] CLINICAL PATHOLOGY Potassium 3.5 3.4 - 5.1 [facility] mmol/L CLINICAL PATHOLOGY Sodium 143 136 - 145 [facility] mmol/L CLINICAL PATHOLOGY Blood Urea Nitrogen 2 (L) 6 - 20 mg/dL [facility] Anion Gap 11 8 - 15 mmol/L [facility] CLINICAL PATHOLOGY Osmolality, Andrew 292 275 - 300 [facility] mosm/kg CLINICAL PATHOLOGY BUN/Cre Ratio 3 [facility] Calcium 8.1 (L) 8.6 - 10.0 [facility] mg/dL CLINICAL PATHOLOGY GFR Non >90 >60 [facility] [place] 2008 CDK-EPI mL/min/1.73m2 CLINICAL PATHOLOGY GFR >90 >60 [facility] 2009 CKD-EPI mL/min/1.73m2 CLINICAL PATHOLOGY Specimen Plasma Performing Organization Address [facility] Phone Number [facility] CLINICAL PATHOLOGY [address] [place] [address] [phone] Magnesium Level (07/22/2019 4:38 PM EST) Magnesium 2.2 1.6 - 2.6 mg/dL [facility] CLINICAL PATHOLOGY Specimen Plasma Performing Organization Address [facility] Phone Number [facility] CLINICAL PATHOLOGY [address] [place] [address] Phosphorus Level (07/22/2019 4:38 PM EST) Phosphorus 1.1 (L) 2.5 - 4.5 mg/dL [facility] CLINICAL PATHOLOGY Specimen Plasma Performing Organization Address [facility] Phone Number [facility] CLINICAL PATHOLOGY [address] [place] [address] EKG 12-LEAD - CMAXX REPORT (07/22/2019 2:28 PM EST) Narrative Performed At EKG 12-LEAD - CMAXX REPORT (07/22/2019 2:28 PM EST) Narrative Performed At EKG 12 Lead (07/22/2019 2:28 PM EST) Specimen Narrative Performed At Ventricular Rate: [facility] EKG 92 BPM Atrial Rate: 92 BPM P-R Interval: 148 ms QRS Duration: 76 ms Q-T Interval: 362 ms QTC Calculation(Bazett): 447 ms P [place]: 44 degrees R [place]: 61 degrees T [place]: 34 degrees : SINUS RHYTHM WITH SINUS ARRHYTHMIA : LOW VOLTAGE QRS : WITHIN BROAD LIMITS OF NORMAL : WHEN COMPARED WITH ECG OF 22-JUL-2019 09:42, : NO SIGNIFICANT CHANGE WAS FOUND : Confirmed by BRITTANY MORALES ([id number]) on 07/22/2019 5:38:46 : PM Procedure Note Interface, Received Via [employer] - 07/22/2019 5:38 PM EST Ventricular Rate: 92 BPM Atrial Rate: 92 BPM P-R Interval: 148 ms QRS Duration: 76 ms Q-T Interval: 362 ms QTC Calculation(Bazett): 447 ms P [place]: 44 degrees R [place]: 61 degrees T [place]: 34 degrees : SINUS RHYTHM WITH SINUS ARRHYTHMIA : LOW VOLTAGE QRS : WITHIN BROAD LIMITS OF NORMAL : WHEN COMPARED WITH ECG OF 22-JUL-2019 09:42, : NO SIGNIFICANT CHANGE WAS FOUND : Confirmed by BRITTANY MORALES ([id number]) on 07/22/2019 5:38:46 : PM Performing Organization Address [facility] Phone Number [facility] EKG Phosphorus Level (07/22/2019 1:50 PM EST) Phosphorus 0.6 (LL)Comment: 2.5 - 4.5 mg/dL [facility] Results called to CLINICAL PATHOLOGY and read back by KIRSTEN PARRISH RN ON 6H AT 1536 BY 1753 Specimen Plasma Performing Organization Address [facility] Phone Number [facility] [address] [place] [address] Magnesium Level (07/22/2019 1:50 PM EST) Magnesium 2.6 1.6 - 2.6 mg/dL [facility] CLINICAL PATHOLOGY Specimen Plasma Performing Organization Address [facility] Phone Number [facility] [address] [place] [address] Basic Metabolic Panel (07/22/2019 1:50 PM EST) Bicarbonate 18 (L) 22 - 29 mmol/L [facility] Chloride 113 (H) 98 - 107 mmol/L [facility] Creatinine 0.67 0.50 - 0.90 [facility] mg/dL CLINICAL PATHOLOGY Glucose 109 70 - 140 mg/dL [facility] Potassium 3.8 3.4 - 5.1 [facility] mmol/L CLINICAL PATHOLOGY Sodium 141 136 - 145 [facility] mmol/L CLINICAL PATHOLOGY Blood Urea Nitrogen 2 (L) 6 - 20 mg/dL [facility] CLINICAL PATHOLOGY Anion Gap 10 8 - 15 mmol/L [facility] CLINICAL PATHOLOGY Osmolality, Andrew 289 275 - 300 [facility] mosm/kg CLINICAL PATHOLOGY BUN/Cre Ratio 3 [facility] Calcium 7.9 (L) 8.6 - 10.0 [facility] mg/dL CLINICAL PATHOLOGY GFR Non >90 >60 [facility] [place] 2008 CDK-EPI mL/min/1.73m2 CLINICAL PATHOLOGY GFR >90 >60 [facility] 2009 CKD-EPI mL/min/1.73m2 CLINICAL PATHOLOGY Specimen Plasma Performing Organization Address [facility] Phone Number [facility] CLINICAL PATHOLOGY [address] [place] [address] [phone] EKG 12-LEAD - CMAXX REPORT (07/22/2019 9:42 AM EST) Narrative Performed At EKG 12-LEAD - CMAXX REPORT (07/22/2019 9:42 AM EST) Narrative Performed At EKG 12 Lead (07/22/2019 9:42 AM EST) Specimen Narrative Performed At Ventricular Rate: [facility] EKG 92 BPM Atrial Rate: 92 BPM P-R Interval: 174 ms QRS Duration: 86 ms Q-T Interval: 382 ms QTC Calculation(Bazett): 472 ms P [place]: 55 degrees R [place]: 70 degrees T [place]: 59 degrees : SINUS RHYTHM : WITHIN NORMAL LIMITS : WHEN COMPARED WITH ECG OF 22-JUL-2019 03:55, : T WAVES LOWER IN ANTERIOR LEADS : Confirmed by BRITTANY MORALES ([id number]) on 07/22/2019 9:48:18 : AM Procedure Note Interface, Received Via [employer] - 07/22/2019 9:48 AM EST Ventricular Rate: 92 BPM Atrial Rate: 92 BPM P-R Interval: 174 ms QRS Duration: 86 ms Q-T Interval: 382 ms QTC Calculation(Bazett): 472 ms P [place]: 55 degrees R [place]: 70 degrees T [place]: 59 degrees : SINUS RHYTHM : WITHIN NORMAL LIMITS : WHEN COMPARED WITH ECG OF 22-JUL-2019 03:55, : T WAVES LOWER IN ANTERIOR LEADS : Confirmed by BRITTANY MORALES ([id number]) on 07/22/2019 9:48:18 : AM Performing Organization Address City/State/Zipcode Phone Number [facility] EKG XR Chest Frontal Only (07/22/2019 4:42 AM EST) Specimen Narrative Performed At PROCEDURE INFORMATION: [facility] Exam: XR Chest, 1 View Exam date and time: 07/22/2019 4:54 AM Age: 24 years old Clinical indication: Other: Developing pna TECHNIQUE: Imaging protocol: XR of the chest Views: 1 view. COMPARISON: No relevant prior studies available. FINDINGS: Tubes, catheters and devices: An endotracheal tube is present with its tip just above the gabriella. A nasogastric tube is present, with its tip below the inferior aspect of the film. Lungs: There is focal consolidation in the right lower lobe, consistent with pneumonia. Pleural space: Unremarkable. No pleural effusion. No pneumothorax. Heart/Mediastinum: Unremarkable. No cardiomegaly. Bones/joints: Unremarkable. IMPRESSION: 1. Pneumonia. 2. An endotracheal tube is present with its tip just above the gabriella. 3. A nasogastric tube is present, with its tip below the inferior aspect of the film. THIS DOCUMENT HAS BEEN ELECTRONICALLY SIGNED BY WALE CORONADO MD Procedure Note Interface, Received Via [employer] - 07/22/2019 5:30 AM EST PROCEDURE INFORMATION: Exam: XR Chest, 1 View Exam date and time: 07/22/2019 4:54 AM Age: 24 years old Clinical indication: Other: Developing pna TECHNIQUE: Imaging protocol: XR of the chest Views: 1 view. COMPARISON: No relevant prior studies available. FINDINGS: Tubes, catheters and devices: An endotracheal tube is present with its tip just above the gabriella. A nasogastric tube is present, with its tip below the inferior aspect of the film. Lungs: There is focal consolidation in the right lower lobe, consistent with pneumonia. Pleural space: Unremarkable. No pleural effusion. No pneumothorax. Heart/Mediastinum: Unremarkable. No cardiomegaly. Bones/joints: Unremarkable. IMPRESSION: 1. Pneumonia. 2. An endotracheal tube is present with its tip just above the gabriella. 3. A nasogastric tube is present, with its tip below the inferior aspect of the film. THIS DOCUMENT HAS BEEN ELECTRONICALLY SIGNED BY WALE CORONADO MD Performing Organization Address City/[facility] Phone Number [facility] [address] [place] [address] Phosphorus Level (07/22/2019 4:02 AM EST) Phosphorus 1.7 (L) 2.5 - 4.5 mg/dL [facility] Pathology Specimen Plasma Performing Organization Address [facility] Phone Number [facility] [address] [place] [address] [phone] [facility] [address] [place] [id number] Pathology Magnesium Level (07/22/2019 4:02 AM EST) Magnesium 1.4 (L) 1.6 - 2.6 mg/dL [facility] Pathology Specimen Plasma Performing Organization Address [facility] Phone Number [facility] PATHOLOGY [address] [place] [address] [address] Pathology Basic Metabolic Panel (07/22/2019 4:02 AM EST) Bicarbonate 18 (L) 22 - 29 mmol/L [facility] Pathology Chloride 114 (H) 98 - 107 mmol/L [facility] Pathology Creatinine 0.52 0.50 - 0.90 [facility] mg/dL [facility] Pathology Glucose 96 70 - 140 mg/dL [facility] Pathology Potassium 3.3 (L) 3.4 - 5.1 [facility] mmol/L [facility] Pathology Sodium 141 136 - 145 [facility] mmol/L [facility] Pathology Blood Urea Nitrogen 3 (L) 6 - 20 mg/dL [facility] Pathology Anion Gap 9 8 - 15 mmol/L [facility] Pathology Osmolality, Andrew 288 275 - 300 [facility] mosm/kg [facility] Pathology BUN/Cre Ratio 6 [facility] Pathology Calcium 6.6 (L) 8.6 - 10.0 [facility] mg/dL [facility] Pathology GFR Non >90 >60 [facility] [place] 2009 CDK-EPI mL/min/1.73m2 [facility] Pathology GFR >90 >60 [facility] 2009 CKD-EPI mL/min/1.73m2 [facility] Pathology Specimen Plasma Performing Organization Address [facility] Phone Number [facility] PATHOLOG[facility] [address] [place] [address] [facility] [address] [place] [address] Pathology Salicylate level (07/22/2019 4:02 AM EST) Salicylate <1.0 (L) 3.0 - 30.0 mg/dL [facility] Pathology Specimen Plasma Performing Organization Address [facility] Phone Number [facility] PATHOLOG[facility] [address] [place] [address] [facility] [address] [place] [address] Pathology Acetaminophen, Random (07/22/2019 4:02 AM EST) Acetaminophen, <5.0 (L) 10.0 - 30.0 [facility] Random ug/mL [facility] Pathology Specimen Plasma Performing Organization Address [facility] Phone Number [facility] PATHOLOG[facility] [address] [place] [address] [facility] [address] [place] [address] Pathology Partial Thromboplastin Time (PTT) (07/22/2019 4:02 AM EST) PTT Patient (PAT) 21.3 (L) 24.0 - 34.0 s [facility] Pathology Specimen Plasma Performing Organization Address [facility] Phone Number [facility] PATH[facility] [address] [place] [address] [phone] [facility] [address] [place] [address] Pathology Protime-INR (07/22/2019 4:02 AM EST) PT Patient 15.1 (H) 12.5 - 14.9 [facility] Pathology Int'l Normalized 1.15Comment: Routine [facility] Ratio intensity oral Univ Clin anticoagulation INR is Pathology typically 2.0-3.0. Target INR must be clinically individualized. Specimen Plasma Performing Organization Address [facility] Phone Number [facility] PATH[facility] [address] [place] [address] [facility] [address] [place] [address] Pathology CBC and Differential (07/22/2019 4:02 AM EST) White Blood Cell 14.6 (H) 4 - 10 10*3/uL [facility] Pathology Red Blood Cell 3.82 (L) 4.1 - 5.3 [facility] 10*6/uL [facility] Pathology Hemoglobin 11.6 11.5 - 15.5 [facility] g/dL [facility] Pathology Hematocrit 35.3 (L) 36 - 45 % [facility] Pathology Mean Cell Volume 92.5 80 - 96 fL [facility] Pathology Mean Cell Hemoglobin 30.4 27 - 33 pg [facility] Pathology Mean Cell Hgb Conc 32.8 32.0 - 36.0 [facility] g/dL Univ [facility] Pathology Red Cell Dist Width 14.1 11.5 - 14.5 % [facility] Pathology Platelet Count 118 (L) 150 - 400 [facility] 10*3/uL [facility] Pathology Differential Type Manual Diff [facility] Pathology Neutrophil 89 % [facility] Pathology Lymphocyte 8 % [facility] Pathology Monocyte 3 % [facility] Pathology Abs Neutrophil 13.08 (H) 1.8 - 7.0 [facility] 10*3/uL [facility] Pathology Abs Lymphocyte 1.10 (L) 1.2 - 4.0 [facility] 10*3/uL [facility] Pathology Abs Monocyte 0.41 0 - 0.8 [facility] 10*3/uL [facility] Pathology Macrocytosis 1+ [facility] Pathology Poikilocytosis 1+ [facility] Pathology Specimen EDTA Whole Blood Performing Organization Address [facility] Phone Number [facility] PATHOLOG[facility] [address] [place] [address] [facility] [address] [place] [address] Pathology Hepatic Function Panel (07/22/2019 4:02 AM EST) Albumin 3.4 (L) 3.5 - 5.2 g/dL [facility] Pathology Bilirubin, Total 0.3 <1.2 mg/dL [facility] Pathology Bilirubin, Direct <0.2 <0.3 mg/dL [facility] Pathology Alkaline Phosphatase 33 (L) 35 - 104 U/L [facility] Pathology AST/SGO 9 <32 U/L [facility] Pathology ALT/SGP <5 <33 U/L [facility] Pathology Total Protein 5.5 (L) 6.4 - 8.3 g/dL [facility] Pathology Specimen Plasma Performing Organization Address [facility] Phone Number [facility] PATHOLOG[facility] [address] [place] [address] [phone] [facility] [address] [place] [address] Pathology EKG 12-LEAD - CMAXX REPORT (07/22/2019 3:55 AM EST) Narrative Performed At EKG 12-LEAD - CMAXX REPORT (07/22/2019 3:55 AM EST) Narrative Performed At EKG 12 Lead (07/22/2019 3:55 AM EST) Specimen Narrative Performed At Ventricular Rate: [facility] EKG 105 BPM Atrial Rate: 105 BPM P-R Interval: 158 ms QRS Duration: 84 ms Q-T Interval: 354 ms QTC Calculation(Bazett): 467 ms P [place]: 59 degrees R [place]: 81 degrees T [place]: 60 degrees : SINUS TACHYCARDIA : OTHERWISE NORMAL ECG : NO PREVIOUS ECGS AVAILABLE : Confirmed by BRITTANY MORALES ([id number]) on 07/22/2019 9:26:12 : AM Procedure Note Interface, Received Via [facility] [employer] - 07/22/2019 9:26 AM EST Ventricular Rate: 105 BPM Atrial Rate: 105 BPM P-R Interval: 158 ms QRS Duration: 84 ms Q-T Interval: 354 ms QTC Calculation(Bazett): 467 ms P [place]: 59 degrees R [place]: 81 degrees T [place]: 60 degrees : SINUS TACHYCARDIA : OTHERWISE NORMAL ECG : NO PREVIOUS ECGS AVAILABLE : Confirmed by BRITTANY MORALES ([id number]) on 07/22/2019 9:26:12 : AM Performing Organization Address [facility] Phone Number [facility] EKG Blood gas, arterial (07/22/2019 3:50 AM EST) pH 7.37 (L) 7.38 - 7.44 [facility] Pathology pCO2, Arterial 32 (L) 35 - 40 mm[Hg] [facility] Pathology pO2, Arterial 149 (H) 95 - 100 mmHg [facility] Pathology Oxygen Saturation 99 94 - 100 % [facility] Pathology Base Excess NEG 6 [facility] Pathology Total CO2 19 mmol/L [facility] Pathology FIO2 0.40 [facility] Pathology Specimen Whole Blood Performing Organization Address [facility] Phone Number [facility] [address] [place] [address] [facility] [address] [place] [address] Pathology POCT glucose, docked (07/22/2019 3:05 AM EST) POC Glucose 103 70 - 140 mg/dL [facility] POC Specimen Whole Blood Performing Organization Address [facility] Phone Number POINT OF CARE TEST [address] [place] [address] [facility] POC [address] [place] [address] documented in this encounter Visit Diagnoses Diagnosis Overdose of antipsychotic Poisoning by other antipsychotics, neuroleptics, and major tranquilizers documented in this encounter Administered Medications Medication Order MAR Action Action Date Dose Rate Site acetaminophen (TYLENOL) tablet 650 mg 650 mg, Oral, Every 6 hours PRN, Mild Pain (Pain Scale Score 1-3), Headaches , Fever, Starting Fri07/23/19 at 0839, For 719 hours, Maximum daily dose of acetaminophen is 3,000 mg from all sources in 24 hours., amoxicillin-clavulanate (AUGMENTIN) 875-125 MG per tablet 1 tablet 1 tablet, Oral, Every 12 hours Standard (2 times per day), First dose on 07/24/19 at 0900, For 4 days azithromycin (ZITHROMAX) 500 mg in New Bag 07/23/2019 10:51 AM EST 500 mg 250 mL/hr sodium chloride 0.9 % 250 mL (2 mg/mL) IVPB 500 mg, Intravenous, at 250 mL/hr, Every 24 hours, First dose on Fri07/23/19 at 0745, For 5 days bisacodyl (DULCOLAX) suppository 10 mg 10 mg, Rectal, Every 72 hours PRN, Constipation, Starting Jeanette 07/22/19 at 0804 , For 30 days, Hold if patient has had BM within the past 2 days., calcium acetate (PHOSLO) capsule 667 mg Given 07/23/2019 9:08 AM EST 667 mg 667 mg, Oral, Three Times Daily-With Meals, First dose on Jeanette 07/22/19 at 0915, For 30 days, Give with meals, Given 07/22/2019 4:47 PM EST 667 mg Given 07/22/2019 12:12 PM EST 667 mg cefTRIAXone (ROCEPHIN) infusion 1 g New Bag 07/23/2019 9:15 AM EST 1 g 100 mL/hr (premix) 1 g, Intravenous, at 100 mL/hr, Every 24 hours, First dose on Fri07/23/19 at 0745, For 7 days, Discouraged Uses: Empiric treatment of post-surgical meningitis (ceftazidime preferred), cetirizine (ZYRTEC) tablet 10 mg Given 07/23/2019 9:08 AM EST 10 mg 10 mg, Oral, Daily Standard, First dose on Fri07/23/19 at 0900, For 1 dose charcoal activated liquid 50 g Given 07/22/2019 7:27 AM EST 50 g 50 g, Oral, Once, [facility] 07/22/19 at 0545, For 1 dose clonazePAM (KLONOPIN) tablet 1 mg Given 07/23/2019 2:44 PM EST 1 mg 1 mg, Oral, Once, Fri07/23/19 at 1430, For 1 dose, Do not split or crush, docusate sodium (COLACE) capsule 100 mg Given 07/22/2019 10:02 PM EST 100 mg 100 mg, Oral, 2 Times Daily, First dose on Fri07/22/19 at 0900, For 30 days enoxaparin sodium (LOVENOX) injection 40 mg Given 07/23/2019 9:09 AM EST 40 mg 40 mg, Subcutaneous, Daily Standard, First dose on Fri07/23/19 at 0900, For 30 days folic acid (FOLVITE) tablet 1 mg Given 07/23/2019 9:08 AM EST 1 mg 1 mg, Oral, Daily Standard, First dose on Fri07/23/19 at 0800, For 30 days magnesium sulfate infusion 2 Rate/Dose Verify 07/22/2019 11:00 AM EST 50 mL/hr g/50 mL (premix) 16 mEq, Intravenous, Every 1 hour PRN, for serum magnesium < 2 mEq/L, Starting [facility] 07/22/19 at 0327, For 7 days, Serum Magnesium 1.6 - 1.9: give 16 mEq (2 g) q1h x 2
Serum Magnesium 1.5 and less: give 16 mEq (2 g) q1h x 3, Rate/Dose Verify 07/22/2019 10:21 AM EST 50 mL/hr New Bag 07/22/2019 10:16 AM EST 16 mEq 50 mL/hr midazolam (PF) (VERSED) 2 MG/2ML injection Starting [facility] 07/22/19 at 0412, For 1 dose, Shruthi Zavala : cabinet override, midazolam (PF) (VERSED) injection 2 Given by IV push 07/22/2019 4:52 AM EST 2 mg mg 2 mg, Intravenous, Every 4 hours PRN, Sedation, Starting [facility] 07/22/19 at 0401, For 2 days multivitamin tablet 1 tablet Given 07/23/2019 9:08 AM EST 1 tablet 1 tablet, Oral, Daily Standard, First dose on Fri07/23/19 at 0800, For 30 days NaCl infusion 0.9 % Rate/Dose Verify 07/23/2019 2:00 AM EST 100 mL/hr at 100 mL/hr, Intravenous, Continuous, Starting Fri07/22/19 at 0330, For 1 day Restarted - All Meds 07/23/2019 1:58 AM EST 100 mL/hr Restarted - All Meds 07/23/2019 1:57 AM EST 100 mL/hr nicotine (NICODERM CQ) 14 Patch Applied 07/22/2019 11:34 PM EST 1 patch Left Arm MG/24HR 1 patch 1 patch, Transdermal, Administer over 24 Hours, Every 24 hours, First dose on Fri07/22/19 at 2215, For 30 days pantoprazole (PROTONIX) EC tablet 40 mg 40 mg, Oral, Daily Standard, First dose on Fri07/23/19 at 1045, For 30 days, Do not crush or chew, pantoprazole (PROTONIX) injection 40 mg New Bag 07/22/2019 8:03 AM EST 40 mg 40 mg, Intravenous, Daily Standard, First dose on Fri07/22/19 at 0900, For 30 days potassium chloride (K-DUR,KLOR-CON) Given 07/23/2019 9:08 AM EST 40 mEq dissolvable tablet 40 mEq 40 mEq, Oral, Once, Fri07/23/19 at 0745, For 1 dose, May be dissolved in water for patients with a G-Tube or unable to swallow. If concern for clogging G-Tube, may contact Pharmacy to switch formulation to a powder packet., potassium chloride 20 mEq in 50 Rate/Dose Verify 07/22/2019 11:00 AM EST 25 mL/hr mL IVPB (premix) 20 mEq, Intravenous, Every 1 hour PRN, for serum potassium < 4 mEq/L, Starting Fri07/22/19 at 0327, For 7 days, * For patients with continuous ECG monitoring * Serum Potassium 3.7 - 3.9: give 20 mEq q1h x 1 Serum Potassium 3.6 and less: give 20 mEq q1h x 2, Rate/Dose Change 07/22/2019 10:18 AM EST 25 mL/hr New Bag 07/22/2019 10:17 AM EST 20 mEq 50 mL/hr potassium phosphate (monobasic) (K-PHOS Given 07/22/2019 10:02 PM EST 500 mg ORIGINAL) tablet 500 mg 500 mg, Oral, Four Times Daily-With Meals & Nightly, First dose on Jeanette 07/22/19 at 0915, For 1 day, Dissolve tablets in 6-8 oz of water; for best results, soak tablets in water for 2-5 minutes, then stir and give to patient., Each 500 mg tablet contains: elemental phosphorous 114 mg and potassium 144 mg (3.7 mEq), Given 07/22/2019 4:31 PM EST 500 mg Given 07/22/2019 12:13 PM EST 500 mg potassium phosphate infusion 6 New Bag 07/22/2019 4:45 PM EST 6 mmol 25 mL /hr mmol/100 mL (premix) 6 mmol, Intravenous, at 25 mL/hr, Once, Jeanette 07/22/19 at 1615, For 1 dose, Slower infusion rates (e.g. over 4 hours) are recommended in patients with renal impairment and/or less severe hypophosphatemia. Product contains 8.8 mEq of potassium., potassium phosphate infusion Restarted - All Meds 07/23/2019 12:10 AM 25 mL/hr 6 mmol/100 mL (premix) EST 6 mmol, Intravenous, at 25 mL/hr, Once, Jeanette 07/22/19 at 2045, For 1 dose, Slower infusion rates (e.g. over 4 hours) are recommended in patients with renal impairment and/or less severe hypophosphatemia. Product contains 8.8 mEq of potassium., Rate/Dose Verify 07/23/2019 12:00 AM EST 25 mL/hr Restarted - All Meds 07/22/2019 11:50 PM EST 25 mL/hr propofol (DIPRIVAN) 1000 MG/100ML infusion Starting Jeanette 07/22/19 at 0533, For 1 dose, Monica Thomas : cabinet override, Monica Thomas : cabinet override, propofol (DIPRIVAN) Rate/Dose Verify 07/22/2019 8:00 AM 20 mcg/kg/min 6.4 mL/hr infusion 1,000 mg/100 EST mL 10-80 mcg/kg/min 53.3 kg (3.198-25.584 mL/hr, rounded to 3.2-25.6 mL/hr), Intravenous, at 3.2-25.6 mL/hr, Continuous, Starting Jeanette 07/22/19 at 0415, For 30 days, Starting dose = 10 mcg/kg/min Titrate to maintain RASS of -2 Increase by 5-10 mcg/kg/min Max Dose = 80 mcg/kg/min Titrate down if RASS of -1, Rate/Dose Change 07/22/2019 7:54 AM EST 20 mcg/kg/min 6.4 mL/hr Rate/Dose Verify 07/22/2019 7:32 AM EST 40 mcg/kg/min 12.8 mL/hr senna (SENOKOT) syrup 10 mL 10 mL, Oral, Nightly PRN, Constipation, Starting Jeanette 07/22/19 at 0804, For 30 days sodium chloride 0.9 % 1,000 mL with MVI adult 10 mL, folic acid 1 mg, magnesium sulfate 16 mEq, thiamine (B-1) 100 mg infusion at 100 mL/hr, Intravenous, Continuous, Starting Fri07/23/19 at 0800, For 10 hours, Run in at 100 mL/hr until done., thiamine (B-1) tablet 100 mg Given 07/23/2019 9:08 AM EST 100 mg 100 mg, Oral, Daily Standard, First dose on Fri07/23/19 at 0800, For 30 days documented in this encounter
--- NOTE | 2019-08-13 18:55 | UC ---
Throat Pain/Nasal Justo HPI - HPI Summary HPI Summary: 24 y/o female presents to the urgent care c/o sore throat, subjective low grade fever and mild cough since yesterday 08/12/19. Pt states w/ swallowing is 4/10 associated alos w/ a mild ELIZABETH , fatigue and body aches since this morning. Pt reports she lives w/ her sister who is having fever, cough and mild SOB and tested for COVID yesterday and results are pending. Pt took ibuprofen 400mg PO around 1400pm. Pt denies SOB, dizziness, chest pain, abdominal pain, N/V/D. No Hx of travel. - History of Current Complaint Chief Complaint: UCRespiratory Stated Complaint: SORE THROAT, URI SYMPTOMS Time Seen by Provider: 08/13/19 18:54 Hx Obtained From: Patient Hx Last Menstrual Period: 1 month ago Onset/Duration: Gradual Onset, Lasting Days - 1 day, Still Present Severity: Mild Pain Intensity: 4 - sore throat Pain Scale Used: 0-10 Numeric Cough: Nonproductive - mild Associated Signs & Symptoms: Positive: Sinus Discomfort, Nasal Discharge - clear , Fever - low grade fever. Negative: Dysphagia - Epiglottits Risk Factors Epiglottis Risk Factors: Negative - Allergies/Home Medications Allergies/Adverse Reactions: Allergies Allergy/AdvReac Type Severity Reaction Status Date / Time No Known Allergies Allergy Verified 08/13/19 18:13 Home Medications: Home Medications Gabapentin CAP(*) [Neurontin 300 CAP(*)] 900 mg PO DAILY 08/13/19 [History Confirmed 08/13/19] Ibuprofen TAB* [Advil TAB*] 800 mg PO ONCE PRN 08/13/19 [History Confirmed 08/12] hydrOXYzine HCL TAB* [Atarax TAB 50 MG *] 50 mg PO BEDTIME 08/13/19 [History Confirmed 08/13/19] risperiDONE TAB* [RisperDAL*] 4 mg PO DAILY 08/13/19 [History Confirmed 08/13/19 ] PMH/Surg Hx/FS Hx/Imm Hx Previously Healthy: Yes - Pt denies PMHX - Surgical History Surgical History: None - Family History Known Family History: Positive: None - Pt denies FMHX - Social History Occupation: Employed Full-time Lives: With Family Alcohol Use: None Substance Use Type: None Smoking Status (MU): Current Every Day Smoker Type: Cigarettes Amount Used/How Often: 1 cig/day Review of Systems All Other Systems Reviewed And Are Negative: Yes Constitutional: Positive: Fever - low subjective huey fever, Fatigue, Other - body ahces Skin: Positive: Negative Eyes: Positive: Negative ENT: Positive: Sore Throat, Nasal Discharge - mild clear, Sinus Congestion Respiratory: Positive: Cough - slight dry cough Cardiovascular: Positive: Negative Gastrointestinal: Positive: Negative Genitourinary: Positive: Negative Motor: Positive: Negative Neurovascular: Positive: Negative Musculoskeletal: Positive: Myalgia Neurological/Mental Status: Positive: Headache Psychological: Positive: Negative Is Patient Immunocompromised?: No Physical Exam Triage Information Reviewed: Yes Appearance: Well-Appearing - VITAL SIGNS: Reviewed. To decrease the potential of COVID 19 the physical eamination was performed through Telemedicine which limits the examination. Physcial exam was done w/ the help of nurse. Patient is a well developed and nourished female who is sitting comfortably in the examining table. Patient is not in any acute respiratory distress. Vital Signs Reviewed: Yes Eye Exam: Normal Eyes: Positive: Conjunctiva Clear ENT: Positive: Pharynx normal - mild erythema as per nurse. Negative: Nasal congestion, Nasal drainage Respiratory Exam: Normal Respiratory: Positive: Chest non-tender, Lungs clear, Normal breath sounds - as per nurse Cardiovascular Exam: Normal Musculoskeletal Exam: Normal Musculoskeletal: Positive: Strength Intact - Extrems: moves all extremities with good strength. Neurological Exam: Normal - NEURO: Alert and oriented x 3. No acute neurological deficits. Pt follows commands. Psychological Exam: Normal Skin Exam: Normal Throat Pain/Nasal Course/Dx - Course Course Of Treatment: 24 y/o female presents to the urgent care c/o sore throat, subjective low grade fever and mild cough since yesterday 08/12/19. Pt states w/ swallowing is 4/10 associated alos w/ a mild ELIZABETH , fatigue and body aches since this morning. Pt reports she lives w/ her sister who is having fever, cough and mild SOB and tested for COVID yesterday and results are pending. Pt took ibuprofen 400mg PO around 1400pm. Pt denies SOB, dizziness, chest pain, abdominal pain, N/V/D. Pt is hemodynamically stable, A&OX3, VS: WNL. PE:done through Teleconference by the help of the nurse Giovanna. Pt w/ possible viral syndrome on examination. Rapid strep ordered, result: negative. Influenza A&B: negative. COVID19 testing ordered since Pt exposed to Pts w/ worsening symptoms and awaiting for COVID19 results. Pt advised results will have a turn over of 3-6 days. Pt advised to quarantine while waiting for the results and Health department will contact her to notify her of any abnormality. Pt advised to take Tylenol to alleviate symptom. Increase hydration and boost his immune system by eating well, taking Vitamin C and avoiding strenuous exercise. D/C instructions explained. Pt understood and agreed w/ plan of care. - Differential Dx/Diagnosis Differential Diagnosis/HQI/PQRI: Influenza, Laryngitis, Pharyngitis, Sinusitis, URI, Other - COVID Provider Diagnosis: Acute viral syndrome Discharge ED - Sign-Out/Discharge Documenting (check all that apply): Patient Departure - D/C home All imaging exams completed and their final reports reviewed: No Studies - Discharge Plan Condition: Stable Disposition: HOME Patient Education Materials: Viral Syndrome (ED) Forms: COVID-19 Tested & Isolation Referrals: [facility]ERR[facility] [Outside] - 3 Days Additional Instructions: 1-Oropharyngeal swabs to r/o COVID-19 have been sent to the lab, you will be notified of any abnormality as soon as we get the results. 2-Please Take Tylenol PO q6-8hrs prn as instructed after meals to alleviate fever, or myalgias and sore throat. Take Vitamin C to boost your immune system. Increase a lot fluid intake, eat well, rest and avoid strenuous exercise. 3- Please isolate at home until you get the results follow the instructions given. The Health department will contact you with the results , follow their recommendations. 4-If you develop any SOB, chest pain, any respiratory distress, weakness, nausea and vomiting please return to the urgent care or go immediately to the ER for further management. - Billing Disposition and Condition Condition: STABLE Disposition: Home
[2019-08-13 19:23] VITALS: BP 111/60
[2019-08-13 19:32] LABS: Influenza A Molecular Negative (Negative); Influenza B Molecular Negative (Negative)
== END 2019-08-13 20:13 | disposition home or self-care (01) ==
LOC: UCEAST 17:59
DX: B34.9 Viral infection, unspecified (principal); J34.89 Other specified disorders of nose and nasal sinuses; R50.9 Fever, unspecified; Z20.828 Contact with and (suspected) exposure to other viral communicable diseases; F17.210 Nicotine dependence, cigarettes, uncomplicated
CPT/HCPCS: 87651; 99212; G0463; Q3014; U0002